=== PATIENT | female | born 2000 | race Caucasian/White ===

== ENCOUNTER 2023-10-11 13:35 | Emergency (ER) | payer BC, SELFPAY ==
[2023-10-11 13:37] VITALS: BP 132/80; PULSE 85; TEMP 37.1; O2SAT 100; BMI 25.6
--- NOTE | 2023-10-11 13:58 | ED.GENADUL1 ---
HPI HPI - General Adult General Chief complaint: Abdominal Pain Stated complaint: CRAMPING/SPOTTING/DIARRHEA Time Seen by Provider: 10/11/23 13:44 Source: patient Mode of arrival: walk-in History of Present Illness HPI narrative: 23-year-old female presents for diarrhea and abdominal cramping. She is about 11 weeks . She had 1 very minimal episode of very light spotting and has had no further vaginal bleeding. No blood in her stool. She talked to her vice president medical affairs and she was sent in here. She has not had a fever and has not had any ill contacts. Related Data Allergies Allergy/AdvReac Type Severity Reaction Status Date / Time No Known Drug Allergies Allergy Verified 10/11/23 13:40 Opioid HPI Opioid Management Most Recent Opioid Data: Last ED Pain Assessment 10/11/23 14:03 Review of Systems ROS Narrative A ten point review of systems is negative except as noted above. Exam Narrative Exam Narrative: Nurses note and vital signs reviewed and patient is not hypoxic. General: The patient appears well and in no apparent distress. Patient is resting comfortably on cart. Skin: Warm, dry, no pallor noted. There is no rash noted. Head: Normocephalic, atraumatic Eye: Normal conjunctiva, no drainage Ears, Nose, Mouth, and Throat: oral mucosa is moist. Nares patent. Cardiovascular: Regular Rate and Rhythm Respiratory: Patient is in no distress, no accessory muscle use, lungs are clear to auscultation, no wheezing, rales or rhonchi Back: non-tender GI: Soft and nontender, nondistended Musculoskeletal: The patient has no evidence of calf tenderness, no pitting edema, symmetrical pulses noted bilaterally Neurological: A&O, normal speech Psychiatric: Cooperative Constitutional Vital Signs, click to edit/add: Last Vital Signs Temp 98.7 F 10/11/23 13:37 Pulse 85 10/11/23 13:37 Resp 16 10/11/23 14:46 BP 106/63 10/11/23 14:46 Pulse Ox 99 10/11/23 14:46 O2 Del Method Room Air 10/11/23 13:37 Course Vital Signs Vital signs: Vital Signs Temperature 98.7 F 10/11/23 13:37 Pulse Rate 85 10/11/23 13:37 Respiratory Rate 16 10/11/23 13:37 Blood Pressure 132/80 10/11/23 13:37 Pulse Oximetry 100 10/11/23 13:37 Oxygen Delivery Method Room Air 10/11/23 13:37 Temperature 98.7 F 10/11/23 13:37 Pulse Rate 85 10/11/23 13:37 Respiratory Rate 16 10/11/23 14:46 Blood Pressure 106/63 10/11/23 14:46 Pulse Oximetry 99 10/11/23 14:46 Oxygen Delivery Method Room Air 10/11/23 13:37 Medical Decision Making MDM Narrative Medical decision making narrative: Ultrasound shows normal IUP and she is able to be discharged home. Treatment diagnosis and follow-up were discussed with the patient and her mother. Differential Diagnosis Differential Diagnosis: Gastroenteritis, miscarriage Lab Data Lab results reviewed: Yes I reviewed the patient's lab results Labs: Lab Results 10/11/23 Range/Units 13:58 WBC 10.7 (4.0-11.0) 10^3/uL RBC 4.20 (4.20-5.40) 10^6/uL Hgb 12.0 (12.0-16.0) g/dL Hct 35.4 L (36.0-48.0) % MCV 84.3 (81.0-99.0) fL MCH 28.6 (26.7-34.0) pg MCHC 33.9 (29.9-35.2) g/dL RDW 11.9 (11.0-15.0) % Plt Count 220 (150-450) 10^3/uL MPV 10.9 (9.5-13.5) fL Neut % (Auto) 78.0 H (43.0-75.0) % Lymph % (Auto) 16.1 L (20.5-60.0) % [place] % (Auto) 5.2 (1.7-12.0) % Eos % (Auto) 0.3 L (0.9-7.0) % Baso % (Auto) 0.2 (0.2-2.0) % Neut # (Auto) 8.3 H (1.4-6.5) 10^3/uL Lymph # (Auto) 1.7 (1.2-3.8) 10^3/uL [place] # (Auto) 0.6 (0.3-0.8) 10^3/uL Eos # (Auto) 0.0 (0.0-0.7) 10^3/uL Baso # (Auto) 0.0 (0.0-0.1) 10^3/uL Abs Immat Gran (auto) 0.02 (0.00-0.03) 10^3/uL Imm/Tot Granulo (auto) 0.2 (0.0-0.5) % Sodium 137 (136-145) mmol/L Potassium 3.5 (3.5-5.1) mmol/L Chloride 102 (98-107) mmol/L Carbon Dioxide 23.9 (21.0-32.0) mmol/L Anion Gap 14.6 BUN 8.0 (7.0-18.0) mg/dL Creatinine 0.52 L (0.55-1.02) mg/dL Est GFR ( Amer) >60 (>=60) Est GFR (Non-Af Amer) >60 (>=60) BUN/Creatinine Ratio 15.4 Glucose 92 (74-106) mg/dL Calcium 8.9 (8.5-10.1) mg/dL Imaging Data Pelvic ultrasound: Radiologist's impression: ITS Impressions Transvaginal US 10/11/23 14:55 IMPRESSION: Viable intrauterine . Right ovarian cyst measuring up to 5.5 cm. Electronically authenticated by: KAROL LYN Date: 10/11/2023 15:52 Discharge Plan Discharge Stand Alone Forms: Portal Instructions Chief Complaint: Abdominal Pain Clinical Impression: Gastroenteritis Patient Disposition: Home, Self-Care Time of Disposition Decision: 15:59 Condition: Good Mode of Transportation: Private Vehicle Print Language: Kenyan Instructions: Acute Diarrhea (ED) Referrals: DAISY BONILLA [Primary Care Provider] - 1 week
[2023-10-11] MEDS: 0.9 % SODIUM CHLORIDE 1,000 ML 1000 ML IV (14:01)
[2023-10-11 14:08] LABS: Basophils Percent Auto 0.2 % (0.2-2.0); Eosinophils Percent Auto 0.3 % (0.9-7.0); Hematocrit 35.4 % (36.0-48.0); Immature Granulocytes Abs Auto 0.02 10^3/uL (0.00-0.03); Immature Granulocytes Pct Auto 0.2 % (0.0-0.5); Lymphocytes Absolute Auto 1.7 10^3/uL (1.2-3.8); Lymphocytes Percent Auto 16.1 % (20.5-60.0); Mean Corpuscular HGB Conc 33.9 g/dL (29.9-35.2); Mean Corpuscular Hemoglobin 28.6 pg (26.7-34.0); Mean Corpuscular Volume 84.3 fL (81.0-99.0); Mean Platelet Volume 10.9 fL (9.5-13.5); Monocytes Absolute Auto 0.6 10^3/uL (0.3-0.8); Monocytes Percent Auto 5.2 % (1.7-12.0); Neutrophils Absolute Auto 8.3 10^3/uL (1.4-6.5); Platelet Count 220 10^3/uL (150-450); Red Cell Distribution Width 11.9 % (11.0-15.0); White Blood Count 10.7 10^3/uL (4.0-11.0)
[2023-10-11 14:13] LABS: Anion Gap 14.6; BUN Creatinine Ratio 15.4; Calcium 8.9 mg/dL (8.5-10.1); Carbon Dioxide 23.9 mmol/L (21.0-32.0); Chloride 102 mmol/L (98-107); Estimated GFR (African America >60 (>=60); Estimated GFR (Non-African Ame >60 (>=60); Glucose 92 mg/dL (74-106); Potassium 3.5 mmol/L (3.5-5.1); Sodium 137 mmol/L (136-145)
[2023-10-11 14:46] VITALS: BP 106/63; O2SAT 99
--- NOTE | 2023-10-11 14:55 | US_ITS ---
The [address] [address] Patient Name: LESLEE REED MRN: [id number] date: 2000 Sex: F Assigned Patient Location: ER Current Patient Location: ER Accession/Order Number: [id number] Exam Date: 10/11/2023 15:10 Report Date: 10/11/2023 15:52 At the request of: HUSAM ARITA Procedure: US OB transvaginal EXAM: US OB transvaginal HISTORY: Vaginal bleeding COMPARISON: None. TECHNIQUE: Transvaginal grayscale and Doppler first trimester ultrasound. FINDINGS: The uterus is normal in appearance. Intrauterine gestational sac and pole are visualized. The heart rate is 163 bpm. Ultrasound gestational age of 12 weeks 0 days. The right ovary measures 6.8 x 5 x 3.5 cm. Unilocular anechoic cyst measuring 5.5 cm. The left ovary measures 3.3 x 2.1 x 2.1 cm. Normal appearance and Doppler flow. The cervix measures 3.7 cm and is closed. US/US OB transvaginal IMPRESSION: Viable intrauterine . Right ovarian cyst measuring up to 5.5 cm. Electronically authenticated by: KAROL LYN Date: 10/11/2023 15:52
[2023-10-11 16:07] VITALS: BP 96/66; PULSE 84; O2SAT 99
== END 2023-10-11 16:08 | disposition home or self-care (01) ==
PROVIDERS: Emergency Provider Emergency Medicine; PCP Nurse Practitioner Family
DX: O99.611 Diseases of the digestive system complicating pregnancy, first trimester (principal); K52.9 Noninfective gastroenteritis and colitis, unspecified; Z3A.11 11 weeks gestation of pregnancy
CPT/HCPCS: 36415; 76817; 80048; 85025; 96360; 99284

== ENCOUNTER 2024-03-04 10:34 | Observation (INO) | payer BC, SELFPAY ==
[2024-03-04 10:53] VITALS: BP 133/80; PULSE 78; TEMP 36.9
[2024-03-04 11:17] LABS: Bilirubin Urine NEGATIVE (NEGATIVE); Blood Urine NEGATIVE (NEGATIVE); Clarity Urine CLEAR (CLEAR); Color Urine LT. YELLOW (YELLOW); Glucose Urine UA NEGATIVE (NEGATIVE); Ketones Urine NEGATIVE (NEGATIVE); Leukocyte Esterase Urine SMALL (NEGATIVE); Nitrite Urine NEGATIVE (NEGATIVE); Protein Urine NEGATIVE (NEG/TRACE); Urobilinogen Urine 0.2 EU/dL (0.2-1.0)
[2024-03-04 11:21] LABS: Urine Microscopic Indicated YES
[2024-03-04 11:24] LABS: Bacteria Urine MODERATE #/HPF (NONE SEEN); Crystals Seen? Seen #/HPF (None Seen); Mucus Urine NONE SEEN (NONE SEEN); RBC Urine NONE SEEN #/HPF (0-2); Squamous Epithelial Cell Urine MODERATE #/LPF (NONE/RARE)
[2024-03-04 11:25] LABS: Amorphous Sediment Urine FEW
[2024-03-04 11:26] LABS: Urine Culture Indicated YES
--- NOTE | 2024-03-04 13:06 | PC.NURSE ---
1040- Pt arrives to [facility] c/o lower abdomen pain on bilateral sides of abdomen. Pt states the pain increases with movement. RN discusses round ligament with pt. Pt states she has had round ligament but states this isn't the same and feels worse. RN palpates abdomen, pt denies pain or tenderness with palpation. Pt denies vaginal bleeding or leaking or fluid. Pt reports white discharge and states she was recently treated for yeast infection. Pt denies cxt's but states she does have travis vigil at times. Pt reports active movement. Pt denies complications other then POTS with this . Pt given belly band for comfort. Urine sample obtained.
--- NOTE | 2024-03-04 13:17 | PC.NURSE ---
1235-d/c home. [facility] discharge instructions given.
== END 2024-03-04 12:35 | disposition home or self-care (01) ==
LOC: FBC 10:36
PROVIDERS: Admitting Provider Obstetrics & Gynecology; PCP Nurse Practitioner Family; Visit Provider Obstetrics & Gynecology
DX: O26.893 Other specified pregnancy related conditions, third trimester (principal); R10.31 Right lower quadrant pain; R10.32 Left lower quadrant pain; N89.8 Other specified noninflammatory disorders of vagina; Z3A.32 32 weeks gestation of pregnancy
CPT/HCPCS: 59025; 81001; 87086; G0378; G0379

== ENCOUNTER 2024-03-23 21:26 | Observation (INO) | payer BC, SELFPAY ==
--- OUTSIDE RECORDS SUMMARY | 2024-03-23 21:34 | XMS_ITS | CCD ---
Author Organization [facility] Care Team Providers Care Overlock Sleeve Setter Name Role Phone Won Joaquim Hill Unavailable Unavailable Ceferino Thurston Unavailable Unavailable Unavailable Primary Care Provider Unavailluther e PROVIDER, UNKNOWN Primary Care Unavailable Sanjay Luevano Unavailable Zaire GARCIA, Soumya Dan Attending Unavail able Manuela GARCIA, Bowen Allan Referring Unavaila heriberto Roy MD, Boewn Allan Attending Unavaila Manfred Argueta Attending Unavailable Manfred Watson Admitting Unavailable NON STAFF Primary Care Unavailable Macario SET UP MECHANIC STAMPING MACHINES-Chanel ROSA Primary Care Provider [phone] SARITA JOY Attending Unavailable CHANEL BONILLA Referring Unavailable CHANEL BONILLA Primary Care Unavailable CHANEL BONILLA Attending Unavailable CHANEL BONILLA Attending Unavailable CHANEL BONILLA Attending Unavailable TOSIN, JORDANA L Attending Unavailable FLORO, JORDANA L Referring Unavailable FLORO, JORDANA L Attending Unavailable FLORO, JORDANA L Attending Unavailable FLORO, JORDANA L Referring Unavailable FLORO, JORDANA L Attending Unavailable FLORO, JORDANA L Attending Unavailable FLORO, JORDANA L Attending Unavailable FLORO, JORDANA L Referring Unavailable FLORO, JORDANA L Attending Unavailable Allergies Allergy Classification Reported Allergen(s) Allergy Type Date of Onset Reaction(s) Facility (1 source) No Known Medication Allergies; Translations: [No Known Medication Allergies] Propensity to adverse reactions to drug (disorder) [facility] Repository Medications Current Medications Medication Drug Class(es) Dates Sig (Normalized) Sig (Original) amoxicillin 875 mg / clavulanate 125 mg oral tablet (1 source) Penicillin-class Antibacterial Start: 01-04-2023 take 1 tablet by mouth every twelve hours Amoxicillin-Pot Clavulanate 875-125 MG 1 tablet Orally every 12 hrs for 10 day(s) Dec, Active lactobacillus acidophilus [id number] unt / pectin 100 mg oral tablet (1 source) acidophilus-pect i n, citrus 25 million cell -100 mg tablet Take by mouth 3 (three) times a day with meals. 0 Active sertraline 50 mg oral tablet (2 sources) Serotonin Reuptake Inhibitor take 1 tablet by mouth in the morning sertraline (ZOLOFT) 50 mg tablet Take 1 tablet (50 mg total) by mouth in the morning. 0 Active take 1 tablet by mouth once arely y Sertraline HCl 50 MG 1 tablet Orally Once a day Active Problems Active Problems Problem Classification Problem Date Documented Da te Episodic/Chronic Conditions associated with dizziness or vertigo (1 source) Dizziness and giddiness; Translations: [Dizziness and giddiness] Onset: 05-07-2023 Episodic Other upper respiratory infections (2 sources) Acute pharyngitis, unspecified; Translations: [Streptococcal pharyngitis] Episodic Past or Other Problems Problem Classification Problem Date Documented Da te Episodic/Chronic Syncope (3 sources) Near syncope; Translations: [Syncope and collapse] Onset: 05-23-2023 08-22-2023 Episodic Results Test Name Value Interpretation Reference Range Facility US OB FOLLOW UP TRANSABDOMIN AL APPROACHon 02-20-2024 OB FOLLOW UP TRANSABDOMINAL APPROACH TITLE OF EXAM: OB Ultrasound: REASON FOR EXAM: Growth TECHNIQUE: Grayscale and color Doppler imaging is performed. Measurements: heart rate: 158 bpm RUBINA: 16.0 cm (8.9-23.6) BPD: 8.0 cm HC: 29.1 cm AC: 28.6 cm FL: 6.2 cm GA for sonogram: 32.2 wk (29.2-35.3) Cervix length: 5.7 cm DRE: 04/27/2024 Weight Estimate: Weight: 1961 gm / 4 lbs, 5 oz (7773-2289 gm) [place] Normal: 1650 gm (0750-1829 gm) [place] Wt%: 99% for 30.5 wks CLINICAL SUMMARY: A single intrauterine is noted in cephalic presentation. heart is observed with a heart rate of 158 BPM. size is large (>90%) for gestational age by weight. growth: Significant (>20%) increase in wt. percentile since previous study. motion and organs seen: body and limb movements are observed. Placenta is located anteriorly. Placenta is Grade 0/III Amniotic fluid volume is normal. IMPRESSION: Single live intrauterine gestation with S>D by nearly 2 weeks. Dictated and transcribed 02/20/24/dpd This report has been electronically signed and approved by the interpreting radiologist. Electronically Signed Lexa Garcia M.D. 2024-02-20 16:24:45 Normal Not Available US OB 14+ WEEKS ANATOMY SCAN on 12-08-2023 US OB 14+ WEEKS ANATOMY SCAN FINDINGS: A single, live intrauterine is present with normal cardiac rate of 139 beats per minute. Normal activity and amniotic fluid volume. Amniotic fluid index is 14 cm. Morphology is grossly normal. The cervix is long and closed, 4.7 cm. The placenta is anterior, not associated with the cervical os. The current sonographic age is 20 weeks and 1 day, based on the following measurements: BPD 4.7 cm (20 weeks, 2 days) Head Circumference 17.6 cm (20 weeks, 1 day) Abdominal Circumference 14.9 cm (20 weeks, 1 day) Femur Length 3.2 cm (20 weeks, 1 day) Presentation Breech Placenta Anterior Grade 0 Weight (g) by Percentile 61.0 % * These measurements result in an estimated date of delivery of April 25, 2024. The current estimated weight is 335 grams (0 pounds, 12 ounces). IMPRESSION: Single, live intrauterine , current sonographic age of 20 weeks and 1 days, with an estimated date of delivery of April 25, 2024. * Estimated Weight (g) by Percentile is based upon an accurate estimated age based on last menstrual period. TRANSCRIBED BY: ELECTRONICALLY SIGNED BY: Augustin Rdz MD Normal Not Available US OB < 14 WEEKS EARLYon US OB < 14 WEEKS EARLY EXAM: US OB < 14 WEEKS EARLY DATE:09/16/2023 4:56 PM CLINICAL HISTORY: Amenorrhea. . COMPARISON: None available for this . Correlation with pelvic ultrasound 03/15/2021. TECHNIQUE: Transvaginal ultrasound was performed of the pelvis. FINDINGS: An approximately 2.9 cm in average dimension gestational sac is present within the central aspect of the uterine body/fundus, without significant surrounding subchorionic hemorrhage. A pole measuring approximately 1.8 cm is present, which corresponds 8 weeks 2 days, +/- 4 days, which is 98.7 percentile for gestation by LMP. The estimated date of delivery by measurements is: 04/26/2024. The estimated date of delivery by LMP is 04/27/2024. cardiac activity measures approximately 168, without visualized arrhythmia. The uterus is otherwise unremarkable in appearance, measuring approximately 8.6 x 6.3 x 4.5 cm, for a volume of 127.5 mL. An approximately 5.1 x 5.0 x 3.6 cm simple cyst within the right ovary appears substantially similar in appearance to 10/13/2020. There is equivalent blood flow to the surrounding ovarian parenchyma. The right ovary measures approximately 5.8 x 5.5 x 3.2 cm, for a volume of approximately 54.4 mL. The left ovary appears within normal limits, measuring approximately 3.3 x 2.6 x 2.4 cm, for a volume of 10.4 mL. There is no significant free fluid, or other findings of concern identified. IMPRESSION: SINGLE LIVE INTRAUTERINE CORRESPONDING TO 8 weeks 2 days, +/- 1 week. Approximately 5 cm simple right ovarian cyst, which appears substantially similar to 03/15/2021. NO FREE FLUID OR OTHER FINDINGS OF CONCERN IDENTIFIED. ELECTRONICALLY SIGNED BY: Shane Mckeon MD Normal Not Available B-Type Natriuretic Peptideon 05-07-2023 Natriuretic peptide B (Bld) [Mass/Vol] 28.0 pg/mL Normal 5-100 [facility] Comment on above: Result Comment: PERF ORMED BY: [place] [address] PATHOLOGIST COMPRESSED GASES TESTER HALEY PIERRE M.D. Performed By: #### D DIMER, PT, CMP, CK, BNP, HS TROP, CBC, MG, PTT #### [address] Complete Blood Count Auto Di ffon 05-07-2023 Basophils (Bld) [#/Vol] 0.1 10*3/uL Normal 0.0-0.2 [facility] Comment on above: Result Comment: PERF ORMED BY: [address] [place] [address] PATHOLOGIST COMPRESSED GASES TESTER HALEY PIERRE M.D. Performed By: #### D DIMER, PT, CMP, CK, BNP, HS TROP, CBC, MG, PTT #### [address] Basophils/100 WBC (Bld) 0.5 % Normal . [facility] Comment on above: Performed By: #### D DIMER, PT, CMP, CK, BNP, HS TROP, CBC, MG, PTT #### [address] Eosinophils (Bld) [#/Vol] 0.0 10*3/uL Normal 0.0-0.45 [facility] Comment on above: Performed By: #### D DIMER, PT, CMP, CK, BNP, HS TROP, CBC, MG, PTT #### [address] Eosinophils/100 WBC (Bld) 0.2 % Normal . [facility] Comment on above: Performed By: #### D DIMER, PT, CMP, CK, BNP, HS TROP, CBC, MG, PTT #### [address] Erythrocyte distribution width (RBC) [Ratio] 13.5 % Normal 11.9-15.3 [facility] Comment on above: Performed By: #### D DIMER, PT, CMP, CK, BNP, HS TROP, CBC, MG, PTT #### [address] Hematocrit (Bld) [Volume fraction] 43.7 % Normal 34.0-46.4 [facility] Comment on above: Performed By: #### D DIMER, PT, CMP, CK, BNP, HS TROP, CBC, MG, PTT #### [address] Hemoglobin (Bld) [Mass/Vol] 14.8 g/dL Normal 11.8-15.4 [facility] Comment on above: Performed By: #### D DIMER, PT, CMP, CK, BNP, HS TROP, CBC, MG, PTT #### [address] Lymphocytes (Bld) [#/Vol] 2.0 10*3/uL Normal 1.00-4.8 [facility] Comment on above: Performed By: #### D DIMER, PT, CMP, CK, BNP, HS TROP, CBC, MG, PTT #### [address] Lymphocytes/100 WBC (Bld) 20.0 % Normal . [facility] Comment on above: Performed By: #### D DIMER, PT, CMP, CK, BNP, HS TROP, CBC, MG, PTT #### [address] MCH (RBC) [Entitic mass] 28.2 pg Normal 24.7-34.3 [facility] Comment on above: Performed By: #### D DIMER, PT, CMP, CK, BNP, HS TROP, CBC, MG, PTT #### [address] MCV (RBC) [Entitic vol] 83.2 fL Normal 80-100 [facility] Comment on above: Performed By: #### D DIMER, PT, CMP, CK, BNP, HS TROP, CBC, MG, PTT #### [address] Mean Corpuscular HGB Conc 34.0 g/dL Normal 32.0-35.0 [facility] Comment on above: Performed By: #### D DIMER, PT, CMP, CK, BNP, HS TROP, CBC, MG, PTT #### [address] Monocytes (Bld) [#/Vol] 0.5 10*3/uL Normal 0.0-0.8 [facility] Comment on above: Performed By: #### D DIMER, PT, CMP, CK, BNP, HS TROP, CBC, MG, PTT #### [address] Monocytes/100 WBC (Bld) 19.49 % Normal 0.00-20.00 [facility] Comment on above: Performed By: #### D DIMER, PT, CMP, CK, BNP, HS TROP, CBC, MG, PTT #### [address] Monocytes/100 WBC (Bld) 4.7 % Normal . [facility] Comment on above: Performed By: #### D DIMER, PT, CMP, CK, BNP, HS TROP, CBC, MG, PTT #### [address] Neutrophils (Bld) [#/Vol] 7.5 10*3/uL Normal 1.8-7.7 [facility] Comment on above: Performed By: #### D DIMER, PT, CMP, CK, BNP, HS TROP, CBC, MG, PTT #### [address] Neutrophils/100 WBC (Bld) 74.6 % Normal . [facility] Comment on above: Performed By: #### D DIMER, PT, CMP, CK, BNP, HS TROP, CBC, MG, PTT #### [address] NRBC% 0.0 /100{WBC} Normal 0-0.5 [facility] Comment on above: Performed By: #### D DIMER, PT, CMP, CK, BNP, HS TROP, CBC, MG, PTT #### [address] Platelet mean volume (Bld) [Entitic vol] 9.2 fL Normal 6.3-10.7 [facility] Comment on above: Performed By: #### D DIMER, PT, CMP, CK, BNP, HS TROP, CBC, MG, PTT #### [address] Platelets (Bld) [#/Vol] 246 10*3/uL Normal 150-450 [facility] Comment on above: Performed By: #### D DIMER, PT, CMP, CK, BNP, HS TROP, CBC, MG, PTT #### [facility] [address] RBC (Bld) [#/Vol] 5.25 10*6/uL High 3.60-5.00 [facility] Comment on above: Performed By: #### D DIMER, PT, CMP, CK, BNP, HS TROP, CBC, MG, PTT #### [address] WBC (Bld) [#/Vol] 10.1 10*3/uL Normal 3.8-11.6 [facility] Comment on above: Performed By: #### D DIMER, PT, CMP, CK, BNP, HS TROP, CBC, MG, PTT #### [address] Comprehensive Metabolic Pane dian 05-07-2023 Albumin [Mass/Vol] 4.7 g/dL Normal 3.5-5.7 [facility] Comment on above: Performed By: #### D DIMER, PT, CMP, CK, BNP, HS TROP, CBC, MG, PTT #### [address] Albumin/Globulin [Mass ratio] 1.4 {ratio} Normal [facility] Comment on above: Performed By: #### D DIMER, PT, CMP, CK, BNP, HS TROP, CBC, MG, PTT #### [address] ALP [Catalytic activity/Vol] 77 U/L Normal 34-104 [facility] Comment on above: Performed By: #### D DIMER, PT, CMP, CK, BNP, HS TROP, CBC, MG, PTT #### [address] ALT [Catalytic activity/Vol] 15 U/L Normal 7-52 [facility] Comment on above: Performed By: #### D DIMER, PT, CMP, CK, BNP, HS TROP, CBC, MG, PTT #### [address] Anion gap [Moles/Vol] 11.3 mmol/L Normal 6.0-15.0 [facility] Comment on above: Performed By: #### D DIMER, PT, CMP, CK, BNP, HS TROP, CBC, MG, PTT #### [address] AST [Catalytic activity/Vol] 16 U/L Normal 13-39 [facility] Comment on above: Performed By: #### D DIMER, PT, CMP, CK, BNP, HS TROP, CBC, MG, PTT #### [address] Bilirubin [Mass/Vol] 0.5 mg/dL Normal 0.3-1.0 [facility] Comment on above: Performed By: #### D DIMER, PT, CMP, CK, BNP, HS TROP, CBC, MG, PTT #### [address] Calcium [Mass/Vol] 9.8 mg/dL Normal 8.6-10.3 [facility] Comment on above: Performed By: #### D DIMER, PT, CMP, CK, BNP, HS TROP, CBC, MG, PTT #### [address] Chloride [Moles/Vol] 102 mmol/L Normal 98-107 [facility] Comment on above: Performed By: #### D DIMER, PT, CMP, CK, BNP, HS TROP, CBC, MG, PTT #### [address] CO2 [Moles/Vol] 26.5 mmol/L Normal 21.0-31.0 [facility] Comment on above: Performed By: #### D DIMER, PT, CMP, CK, BNP, HS TROP, CBC, MG, PTT #### [address] Creatinine [Mass/Vol] 0.57 mg/dL Low 0.60-1.20 [facility] Comment on above: Performed By: #### D DIMER, PT, CMP, CK, BNP, HS TROP, CBC, MG, PTT #### [facility] [address] Creatinine Clr Calc Pharmacy 152.63 [facility] Comment on above: Performed By: #### D DIMER, PT, CMP, CK, BNP, HS TROP, CBC, MG, PTT #### [address] GFR/1.73 sq M.predicted MDRD (S/P/Bld) [Vol rate/Area] mL/min/{1.73_m2} [facility] Comment on above: Performed By: #### D DIMER, PT, CMP, CK, BNP, HS TROP, CBC, MG, PTT #### [address] Globulin (S) [Mass/Vol] 3.3 g/dL [facility] Comment on above: Performed By: #### D DIMER, PT, CMP, CK, BNP, HS TROP, CBC, MG, PTT #### [address] Glucose [Mass/Vol] 94 mg/dL Normal 70-100 [facility] Comment on above: Result Comment: [facility] Glucose Reference Range is dependent on time and content of last meal. Glucose of more than 200 mg/dL in a nonstressed, ambulatory subject supports the diagnosis of Diabetes Mellitus. ADA recommended reference range Performed By: #### D DIMER, PT, CMP, CK, BNP, HS TROP, CBC, MG, PTT #### [address] Potassium [Moles/Vol] 3.8 mmol/L Normal 3.5-5.1 [facility] Comment on above: Performed By: #### D DIMER, PT, CMP, CK, BNP, HS TROP, CBC, MG, PTT #### [address] Protein [Mass/Vol] 8.0 g/dL Normal 6.4-8.9 [facility] Comment on above: Performed By: #### D DIMER, PT, CMP, CK, BNP, HS TROP, CBC, MG, PTT #### [address] Sodium [Moles/Vol] 136 mmol/L Normal 136-145 [facility] Comment on above: Performed By: #### D DIMER, PT, CMP, CK, BNP, HS TROP, CBC, MG, PTT #### [address] Urea nitrogen [Mass/Vol] 9 mg/dL Normal 7-25 [facility] Comment on above: Performed By: #### D DIMER, PT, CMP, CK, BNP, HS TROP, CBC, MG, PTT #### [address] Creatine Kinaseon 05-07-2023 CK [Catalytic activity/Vol] 70 U/L Normal 30-223 [facility] Comment on above: Performed By: #### D DIMER, PT, CMP, CK, BNP, HS TROP, CBC, MG, PTT #### [address] D-Dimer High Sensitivityon 1 07-07-2022 D-Dimer High Sensitivity < 200 Normal 0-243 [facility] Comment on above: Result Comment: The reference range for D-dimer is <243 ng/mL D-dimer units. D-dimer results must be used in conjunction with a clinical pretest probability (PTP) assessment model for deep vein thrombosis (DVT) and pulmonary embolism (PE). Results <230 ng/mL d-dimer units can be used as a negative predictor in patients with low or moderate probability for DVT/PE. Results above the exclusion threshold of 230 ng/ml D-dimer units for DVT/PE may indicate the need for further diagnostic testing. D-Dimer can be increased in hospitalized patients due to co-morbid conditions. A hematocrit value greater than 55% may lead to inaccurate results in coagulation testing. Patients having hematocrit values >55% require a special collection tube for coagulation studies. Please contact the laboratory at [phone] for redraw instructions. PERFORMED BY: [place] [address] PATHOLOGIST COMPRESSED GASES TESTER HALEY PIERRE M.D. Performed By: #### G LULS #### Point of Care testing , ECG 12 lead ECGon 05-07-2023 ECG 12 lead ECG [facility] [place] [address] [place] [id number] Electrocardiograph Report Signed Patient: Melissa Navarro MR#: [id number] : 2000 Acct:[id number] Age/Sex: 23 / F ADM Date: 05/07/23 Loc: ER Room: Type: [facility] ER Attending Dr: Ordering Provider: Manfred Watson DO Date of Service: 05/07/23 ECG/ECG 12 lead ECG: Syncope Copies to: Test Reason : Blood Pressure : 133/079 mmHG Vent. Rate : 083 BPM Atrial Rate : 083 BPM P-R Int : 136 ms QRS Dur : 064 ms QT Int : 364 ms P-R-T Axes : 053 071 041 degrees QTc Int : 427 ms Normal sinus rhythm Confirmed by Manfred WATSON DO ([id number]) on 05/07/2023 4:15:35 PM Referred By: Electronically Signed By:Manfred WATSON DO Transcribed By: MUS Signed By Manfred Watson DO 1 07/07/22 1615 Normal [facility] Glucose Poct Glucometerson 1 07-07-2022 Glucose [Mass/Vol] 86 mg/dL Normal [facility] Comment on above: Result Comment: [facility] Glucose Reference Range is dependent on time and content of last meal. Glucose of more than 200 mg/dL in a nonstressed, ambulatory subject supports the diagnosis of Diabetes Mellitus. PERFORMED BY: [address] [id number] PATHOLOGIST COMPRESSED GASES TESTER HALEY PIERRE M.D. Performed By: #### G LULS #### Point of Care testing , HCG,Urineon 05-07-2023 Beta HCG ( test) Ql (U) Negative Normal [facility] Comment on above: Result Comment: PERF ORMED BY: [address] [id number] PATHOLOGIST COMPRESSED GASES TESTER HALEY PIERRE M.D. Performed By: #### G LULS #### Point of Care testing , Magnesiumon 05-07-2023 Magnesium [Mass/Vol] 2.0 mg/dL Normal 1.9-2.7 [facility] Comment on above: Result Comment: PERF ORMED BY: [place] [id number] PATHOLOGIST COMPRESSED GASES TESTER HALEY PIERRE M.D. Performed By: #### D DIMER, PT, CMP, CK, BNP, HS TROP, CBC, MG, PTT #### [facility] [address] [place] [id number] [place] Partial Thromboplastin Timeo n 05-07-2023 aPTT Coag (Bld) [Time] 30.5 s Normal 25.1-36.5 [facility] Comment on above: Result Comment: A he matocrit value greater than 55% may lead to inaccurate results in coagulation testing. Patients having hematocrit values >55% require a special collection tube for coagulation studies. Please contact the laboratory at [phone] for redraw instructions. Performed By: #### G LULS #### Point of Care testing , Prothrombin Time INRon 05-07 INR Coag (PPP) [Relative time] 1.0 {INR} Normal [facility] Comment on above: Result Comment: INR Therapeutic Range A) Pre- and Peroperative OAT started two weeks before surgery. NOT HIP SURGERY: 1.5 - 2.5 HIP SURGERY: 2 - 3 B) Primary and secondary prevention of venous THROMBOSIS: 2 - 3 C) Active venous thrombosis, pulmonary embolism and prevention of recurrent venous thrombosis: 2 - 3 D) Prevention of arterial thromboembolism including patients with mechanical heart valves: 3 - 4.5 Performed By: #### G LULS #### Point of Care testing , PT Coag (PPP) [Time] 12.1 s Normal 9.0-12.9 [facility] Comment on above: Result Comment: A he matocrit value greater than 55% may lead to inaccurate results in coagulation testing. Patients having hematocrit values >55% require a special collection tube for coagulation studies. Please contact the laboratory at [phone] for redraw instructions. Performed By: #### G LULS #### Point of Care testing , Troponin I High Sensitivityo n 05-07-2023 Troponin I High Sensitivity < 2.3 Normal 0.0-15.0 [facility] Comment on above: Result Comment: PERF ORMED BY: [place] [address] PATHOLOGIST COMPRESSED GASES TESTER HALEY PIERRE M.D. Performed By: #### D DIMER, PT, CMP, CK, BNP, HS TROP, CBC, MG, PTT #### [facility] [address] [place] [address] Urinalysison 05-07-2023 Appearance (U) Clear Normal Clear [facility] Comment on above: Order Comment: Name Collection Type:: Clean-Voided Midstream Performed By: #### U A #### [address] Bilirubin,Urine Negative Normal Negative [facility] Comment on above: Order Comment: Name Collection Type:: Clean-Voided Midstream Performed By: #### U A #### [address] Color (U) Yellow Normal Yellow [facility] Comment on above: Order Comment: Name Collection Type:: Clean-Voided Midstream Performed By: #### U A #### [address] Glucose Ql (U) Normal Normal Normal [facility] Comment on above: Order Comment: Name Collection Type:: Clean-Voided Midstream Performed By: #### U A #### [address] Ketones Ql (U) Negative Normal Negative [facility] Comment on above: Order Comment: Name Collection Type:: Clean-Voided Midstream Performed By: #### U A #### [address] Leukocyte esterase Test strip Ql (U) Negative Normal Negative [facility] Comment on above: Order Comment: Name Collection Type:: Clean-Voided Midstream Performed By: #### U A #### [facility] [address] [place] [address] [place] Nitrite,Urine Negative Normal Negative [facility] Comment on above: Order Comment: Name Collection Type:: Clean-Voided Midstream Performed By: #### U A #### [address] Occult Blood,Urine Negative Normal Negative [facility] Comment on above: Order Comment: Name Collection Type:: Clean-Voided Midstream Result Comment: PERF ORMED BY: [place] [address] PATHOLOGIST COMPRESSED GASES TESTER HALEY PIERRE M.D. Performed By: #### U A #### [address] pH (U) 7.0 [pH] Normal 5.0-9.0 [facility] Comment on above: Order Comment: Name Collection Type:: Clean-Voided Midstream Performed By: #### U A #### [address] Protein,Urine Negative Normal Negative [facility] Comment on above: Order Comment: Name Collection Type:: Clean-Voided Midstream Performed By: #### U A #### [address] Specificy [place],Urine 1.005 Normal 1.001-1.030 [facility] Comment on above: Order Comment: Name Collection Type:: Clean-Voided Midstream Performed By: #### U A #### [address] Urobilinogen,Urine Normal Normal Normal [facility] Comment on above: Order Comment: Name Collection Type:: Clean-Voided Midstream Performed By: #### U A #### [place] [address] [place] XR chest 2V*on 05-07-2023 XR chest 2V* [facility] [place] [address] [place] [address] XRay Report Signed Patient: Melissa Navarro MR#: [id number] : 2000 Acct:[id number] Age/Sex: 23 / F ADM Date: 05/07/23 Loc: ER Room: Type: [facility] ER Attending Dr: Copies to: Manfred Watson DO Ordering Provider: Manfred Watson DO Date of Service: 05/07/23 XR/XR chest 2V*: Syncope XR chest 2V* 05/07/2023 2:11 PM SIGNS AND SYMPTOMS: Dizziness, lightheadedness, nausea, hypertension PROTOCOL: Frontal and lateral radiographs of the chest COMPARISON: None FINDINGS: The trachea is midline. The heart and mediastinal structures are within normal limits. The lung parenchyma is clear. The bony thorax is intact. XR/XR chest 2V* IMPRESSION: No acute cardiopulmonary pathology. 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 The symptoms resolved after about a week or 2. She states she has about 1 occasionally 2 infections a year of her tonsils. She also has a history of occasional sinus infection. There is been no significant allergy symptomatology though she does complain of persisting low-grade congestion which may have an allergic component. Review of Systems General Appetite change: No Cardiovascular EENMT Ear drainage: No Ear pain: No Hearing loss: No Hoarseness: Yes Nasal congestion: Yes Nasal discharge: Yes Sore_throat: No Tinnitus: No Gastrointestinal Dysphagia: No Heartburn: No Genitourinary Hematologic/Lymphatic Musculoskeletal Neurological Headache: No Psychiatric Suicidal Ideation: No Respiratory Cough: No Snoring: Yes Skin Physical Exam Vitals & Measurements T: 36.6 ?C (Temporal Artery) HR: 55 (Peripheral) BP: 136/78 HT: 163.5 cm WT: 79.0 kg WT: 79.0 kg (Dosing) BMI: 29.55 General: [Alert and oriented, well nourished, no acute distress]. Eye: [PERRL, EOMI, normal conjunctiva]. HENT: [Normocephalic Ears: Both ear canals are clear tympanic membranes are healthy. Of note there is a moderate amount of cerumen and she admits to using Q-tips which have urged her to stop doing. Nose: The nose is healthy without deformity. The septum is essentially midline with no significant deformity. The airways are patent without stasis or purulence. OC/OP: Moist healthy mucosa with excellent dental repair. Normal lingual coat. Oropharynx reveals 2+ tonsils with a nice open airway. There is no postnasal drainage. Neck: [Supple, non-tender, no lymphadenopathy]. Lungs: [Clear to auscultation and percussion, non-labored respiration]. Heart: [Normal rate, regular rhythm, no murmur, gallop or edema]. Skin: [Skin is warm, dry and pink, no rashes or lesions]. Neurologic: [Awake, alert, and oriented X3, CN II-XII intact]. Psychiatric: [Cooperative, appropriate mood and affect]. Additional Vitals BP Position/Location: Sitting, Left arm Assessment/Plan 1. Acute streptococcal tonsillitis 2. Allergic rhinitis Recommendation: At this time the patient's symptoms do not warrant surgical intervention. 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 She wishes to have an allergic evaluation which we will schedule. I will otherwise be seeing her as needed Medical Decision Making Chronic conditions NOT treated during this visit that affected my overall medical decision making: [] Treatment plans discussed but not opted for at this time: [] Prescribed medication that requires intensive monitoring for toxicity: [] I have reviewed the patient?s medication list for medication interactions/contrain dications and/or for upcoming procedures: [yes or no] Time Spent with the Patient I have personally spent [] minutes on this date, directly related to today's patient visit, including pre and post visit work, for this date of service. Time listed does not include time spent on separately billable services. Problem List/Past Medical History Ongoing No chronic problems Historical No qualifying data Procedure/Surgical History Entire wisdom tooth Medications No active medications Allergies No Known Medication Allergies Social History Tobacco Never (less than 100 in lifetime) Use:. Electronically signed by Bowen Roy MD 03/17/23 09:22 EDT Normal [facility] Quick Strepon 01-04-2023 S. pyogenes Org specific cx Ql (Throat) Positive [facility] Other Quick Strep [facility] Other PAPon 12-07-2021 Microscopic observation Cyto stain Nom (Cvx) SEE BELOW Normal [facility] Comment on above: Result Comment: INTERPRETATION Cervical-Endocervical material, (Thin prep vial, Imaging-assisted review): Specimen Adequacy: Satisfactory for evaluation. -Endocervical/transformation zone component is absent. Descriptive Diagnosis: NEGATIVE FOR INTRAEPITHELIAL LESION OR MALIGNANCY. Cider Maker: VALERY GONZALEZ(ASCP) Electronically Signed Out /12/07/2021 Clinical History: Depo Provera Z12.4 Encounter for screening for malignant neoplasm of cervix High risk HPV DNA testing is requested if the diagnosis is abnormal Source of Specimen: A: Cervical-Endocervical material, (Thin prep vial, Imaging-assisted review) Specimen was processed and screened at [facility], [address] [place], [place] [id number] The Pap smear is a screening test designed to aid in the detection of premalignant and malignant conditions of the uterine cervix. It is not a diagnostic procedure and should not be used as the sole means of detecting cervical cancer. Both false-positive and false-negative reports do occur. Patient Name: MELISSA NAVARRO MR#: [id number] Performed By: #### I PAP #### [employer] [address] [place] [id number] ER Physician Documentationon 04-08-2017 ER Physician Documentation [facility] Patient: MELISSA NAVARRO [address]. : 2000 [place], [place] [address] Location: ER [phone] [id number] Physician Documentation Service Date:04/04/17 ER Provider: Joaquim Upton MD - Chest Pain Time Seen by Provider: 04/04/17 14:23 Arrival Mode: Private Vehicle Historian: Patient - History of Present Illness Stated Complaint: SENT BY DR/ CHEST PAIN Symptoms Began: Today Symptoms Still Occurring: Still Present Quality: Pain Location: Left Chest Associated Symptoms: denies: Nausea, Vomiting, Trouble Breathing, Sweating, Other Severity of Pain: Mild Similar Problems Previously: Once Recently Seen: Another Office 17 y/o F Pt Presents to the ED c/o CP. Pt states she has been having L side CP for 4 days. Pt states she was at her PCP today and got a EKG done and they told her to come to ED, to check for any blood clots. Pt denies taking control, denies long trips and hx of blood clots. Pt denies any surgeries. Pt states her legs have been hurting, slightly, and were swollen, bilaterally, once in the last 4 days. Pt denies family cardiac Hx. Pt's father states Pt has had this once before and it was heartburn. Pt states she does not feel like this is heartburn. Pt denies N/V/D. Pt states last menstrual cycle was last month on the . Past Medical History Allergies/Adverse Reactions: Allergies/Adverse Reactions No Known Drug Allergy Allergy (Verified 04/04/17 14:25) Home Medications: Home Medications Naproxen [Naprosyn] 500 mg PO BID #20 tab 04/04/17 [Rx] - Social History Exposed to second hand smoke/ parent smoke: No Caffeine Amount: <1/Day Alcohol Amount: None Street Drugs: None Review and agree with Nursing - Past Medical History: Agree Review and agree with Nursing - Social History: Agree Review and agree with Nursing - Family History: Agree Review of Systems Constitutional: No symptoms, Night sweats Respiratory: No symptoms Cardiac: Chest pain Abdomen/GI: No symptoms. denies: Nausea, Vomiting Genitourinary: No symptoms Skin: No symptoms Musculoskeletal: No symptoms Neurological: No symptoms. denies: Headache Endocrine: No symptoms Hematologic/Lymphatic : No symptoms Psychiatric: No symptoms All other systems: Reviewed and negative except HPI Exam - Physical Exam Patient presentation: Well appearing, No apparent distress General Skin: Warm, Dry General Habitus: Normal General Mental Status: Alert General hydration: Moist mucous membranes Cardiovascular Exam: Regular rate and rhythm, No edema Heart sounds: Normal Pulmonary exam: Lungs clear, No respiratory distress, Other - L side chest pain Gastrointestinal Exam: Normal bowel sounds, non tender, Soft, No organomegaly, Non distended Auscultation of Abdomen: Normal - Musculoskeletal Exam Musculoskeletal Exam: Full ROM, No edema, Neurovascular intact - Skin Exam Intact, Warm,dry, No rash - Neurovascular Exam Neurological Exam: Alert, Oriented x 3, No motor deficits, No sensory deficits Mental Status: Oriented to person, Oriented to place, Oriented to time Sensory Exam: Intact Course - Progress note 04/04/17 14:23 Basilio Martin PA-C, examined Pt c/o CP. Upon exam Pt has no leg swelling bilaterally, no leg pain, has had no recent surgeries and no long trips. Pt states hx of heartburn with some similar sx. Upon exam Pt has L side CP. Pt will receive LABs and X-ray. Pt will receive Toradol. Pt understands and agrees to POC. 04/04/17 15:48 Basilio Martin PA-C, updated Pt and Pt's father on normal results and on remote care. Pt is resting comfortably. Pt will be discharged with Naproxen and will follow-up with her PCP. Pt and Pt's father understand and agree to POC. - Orders/Results Orders Electrocardiogram 12 Lead Stat CTC 04/04/17 14:31 Completed Laboratory 04/04/17 15:03: D-Dimer 192 Radiology Interpretations: CR XR Chest 1 View Portable Nonacute portable x-ray examination of the chest. Electronically Signed: Juarez Muhammad MD at 15:40 EDT Radiology: Agree with Radiology report findings, Radiology report reviewed - Pulse Oximetry Oxygen delivery method: Room Air Patient Hypoxic: No - EKG Interpretation EKG #1 EKG review date: 04/04/17 EKG review time: 14:24 - EKG reviewed by Dr. Joaquim Upton MD Computerized reading: Agree with computerized reading Interpretation: Normal EKG Comparison: No comparison available Heart rate: 70 Rate: Normal Rhythm: Sinus - Vital Signs Vital Signs 04/04/17 16:01 16 04/04/17 15:47 70 16 117/75 97 04/04/17 14:18 100.3 F 79 16 126/73 98 - *HEART Score HEART Score Completed?: Yes History: Slightly/Non-Suspicio us ECG: Normal Age: < or = 45 years Risk Factors: Current/Recent (<1month) Smoker,DM,HTN,HLP,Fam myron Hx of CAD, Obesity: No Risk Factors Troponin: < or = Normal Limit HEART SCORE: 0 MACE: 2.5% MACE Departure Disposition*: Discharge from ER Condition*: Excellent Clinical Impression*: Costochondritis Instructions: Costochondritis (ED) Additional Instructions: Take Naproxen as prescribed. Follow up with primary care provider in 1-2 days. Return to the Emergency Department if symptoms worsen. Referrals: Ceferino Thurston MD [Primary Care Provider] - in one week Forms: ED Additional Information Prescriptions: Naproxen [Naprosyn] 500 mg PO BID #20 tab - Shared Attending Note 04/04/17 14:54 Dr. Joaquim Upton MD performed a face to face evaluation of the pt c/o CP. Upon examination pt has reproducible anterior chest wall tenderness. Dr. Upton agrees with MART Martin' POC. All questions and concerns were addressed. Pt understands and agrees with POC. - Supervision/Review Statement Evaluation and management services were performed by the DATA REPORT ANALYST/FRANK/Resident under my supervision/collabora tion with my participation. I have reviewed all pertinent clinical information, including history, physical exam and plan. Dr. Joaquim Upton MD. - Scribe Attestation By electronically signing this emergency patient record, the Emergency Physician attests that all entries made into the electronic medical record by the scribe prior to the Physician electronic signature reflect an accurate accounting of the evaluation and care rendered by that Emergency Physician. The Emergency Physician assumes full responsibility for those entries. The Emergency Physician also attests that any patient testing and treatment that was instituted by nursing staff in accordance with Emergency Department Preemptive Guidelines have been reviewed and unless so stated elsewhere in this patient chart, the physician agrees with the testing and care provided. IJaun, documented the HPI, ROS, PE, Progress Note, X-ray and Heart Score for Basilio Martin PA-C. By electronically signing this emergency patient record, the Emergency Physician attests that all entries made into the electronic medical record by the scribe prior to the Physician electronic signature reflect an accurate accounting of the evaluation and care rendered by that Emergency Physician. The Emergency Physician assumes full responsibility for those entries. The Emergency Physician also attests that any patient testing and treatment that was instituted by nursing staff in accordance with Emergency Department Preemptive Guidelines have been reviewed and unless so stated elsewhere in this patient chart, the physician agrees with the testing and care provided. IBabak, documented the Shared Attending Note and EKG on behalf of Dr. Joaquim Upton MD. cc: Ceferino Thurston MD Dictated by: Jaun Barber on 04/04/171424 Transcribed by: Jaun Quinteros on 04/04/171424 Report Signed by: Basilio Martin PA-C on 04/08/17 1551 < > Report Signed by: Joaquim Upton MD on 04/04/17 1950 < > Report Signed by: on Report Signed by: on Co-Signer: Basilio Martin PA-C on 04/08/17 1551 < > Normal [facility] EKG Monitoringon 04-05-2017 EKG Monitoring [facility] Patient: MELISSA NAVARRO. : 2000 [place], [place] [address] Location: [place] [address] Unit #: [id number] EKG Monitoring Lenny Mendoza DO Exam Date/Time Apr 04 2017 14:24:15 Test Reason : Blood Pressure : / mmHG Vent. Rate : 070 BPM Atrial Rate : 070 BPM P-R Int : 124 ms QRS Dur : 076 ms QT Int : 392 ms P-R-T Axes : 033 079 044 degrees QTc Int : 423 ms Normal sinus rhythm Normal ECG No previous ECGs available Confirmed by LENNY MENDOZA DO ([id number]) on 04/05/2017 3:33:19 PM Referred By: Basilio Martin Confirmed By:LENNY MENDOZA DO cc: Dictated by: Lenny Mendoza DO on 04/04/17 142 Transcribed by: [employer] M-AT on 04/05/17 1533 Report Signed by: Lenny Maynardaylinautumn on 04/05/17 1534 Normal [facility] D-Dimeron 04-04-2017 D-Dimer (D-DU) 192 ng/mL Normal <230 [facility] Comment on above: Result Comment: When D-Dimer level is less than 230 ng/mL, probability of DVT and PE is low (based on the studies done by the inorganic chemistry professor and [facility] lab). If D-Dimer level is greater than 230 ng/mL, correlation with clinical findings and/or other modalities is suggested to exclude thromboembolic events. (These guidelines do not apply to patients on anticoagulants). Performed By: #### L 200.1210 ####Main Laboratory ([facility])[address].[place] [id number] Nivar, MD XR Chest 1 View Portableon 1 XR Chest 1 View Portable [facility] Radiology Department Patient: MELISSA NAVARRO [address]. : 2000 Sex: [place] [address] Location: [address] [phone] Unit #: [id number] Ordering Phys: Basilio Martin PA-C Exam Date: 04/04/17 Exam: MAIN XR Chest 1 View Portable Result: STUDY: X-RAY CHEST REASON FOR EXAM: Female, 17 years old. Left-sided chest pain for 4 days TECHNIQUE: AP COMPARISON: None. FINDINGS: EKG leads project over the chest. The lungs are clear and expanded. There is no demonstrated pleural abnormality. Normal size heart. Normal mediastinum and arnold. Normal visualized pulmonary arteries. Normal visualized aortic arch and descending thoracic aorta. Normal visualized thoracic spine. Normal visualized ribs, clavicles, and shoulders. There is no demonstrated abnormality of the visualized soft tissue structures of the upper abdomen. IMPRESSION: Nonacute portable x-ray examination of the chest. Electronically Signed: Juarez Muhammad MD at 15:40 EDT , Service support , cc: Basilio Martin PA-C; Ceferino Thurston MD Dictated by: Misti Muhammad MD on 04/04/17 1518 Technologist: Flory Grimm RT(R) Transcribed by: Misti Muhammad on 04/04/17 1540 Report Signed by: Jb GARCAI,Misti Caro on 04/04/17 1540 Normal [facility] Vital Signs Date Time Vital Sign Value Performing Clinician Facility 08-22-2023 12:15-0500 Body height 162.6 cm Sarita Joy MD Work Phone: [facility] 08-22-2023 12:15-0500 Body mass index (BMI) [Ratio] 32.08 kg/m2 Sarita Joy MD Work Phone: [facility] 08-22-2023 12:15-0500 Body weight 84.82 kg Sarita Joy MD Work Phone: [facility] 08-22-2023 12:15-0500 Diastolic blood pressure 88 mm[Hg] Sarita Joy MD Work Phone: [facility] 08-22-2023 12:15-0500 Heart rate 92 /min Sarita Joy MD Work Phone: [facility] 08-22-2023 12:15-0500 SaO2% (BldA) [Mass fraction] 99 % Sarita Joy MD Work Phone: [facility] 08-22-2023 12:15-0500 Systolic blood pressure 122 mm[Hg] Sarita Joy MD Work Phone: [facility] 01-04-2023 10:00-0400 Body height 162.56 cm Sanjay Luevano Other [facility] Other 01-04-2023 10:00-0400 Body mass index (BMI) [Ratio] 29.86 kg/m2 Sanjay Luevano Other [facility] Other 01-04-2023 10:00-0400 Body temperature 98 [degF] Sanjay Luevano Other [facility] Other 01-04-2023 10:00-0400 Body weight 78.93 kg Sanjay Luevano Other [facility] Other 01-04-2023 10:00-0400 Respiratory rate 18 /min Sanjay Luevano Other [facility] Other 01-04-2023 10:00-0400 SaO2% (BldA) [Mass fraction] 98 % Sanjay Luevano Other [facility] Other Encounters Encounter Date Encounter Type Care Provider Facility Start: 02-25-2024 End: 02-25-2024 ambulatory JORDANA L FLORO Not Available Start: 02-20-2024 End: 02-20-2024 ambulatory JORDANA L FLORO Not Available Start: 01-29-2024 End: 01-29-2024 ambulatory JORDANA L FLORO Not Available Start: 12-31-2023 End: 12-31-2023 ambulatory JORDANA L FLORO Not Available Start: 12-08-2023 End: 12-08-2023 ambulatory JORDANA L FLORO Not Available Start: 11-10-2023 End: 11-10-2023 ambulatory JORDANA L FLORO Not Available Start: 10-13-2023 End: 10-13-2023 ambulatory JORDANA L FLORO Not Available Start: 09-16-2023 End: 09-16-2023 ambulatory JORDANA L FLORO Not Available Start: 08-22-2023 End: 08-22-2023 ambulatory [facility] Start: 08-22-2023 End: 08-22-2023 Office outpatient visit 15 minutes Sarita Joy MD Work Phone: [facility] Comment on above: Near syncope (Primar y Dx) Start: 08-19-2023 End: 08-19-2023 ambulatory CHANEL BONILLA Not Available Start: 06-24-2023 End: 06-24-2023 ambulatory CHANEL BONILLA Not Available Start: 05-08-2023 End: 05-08-2023 ambulatory CHANEL BONILLA Not Available Start: 05-07-2023 End: 05-07-2023 Emergency department patient visit Manfred Watson Facility:[facility] Start: 04-23-2023 ambulatory Soumya Tai MD Facility:[facility] Start: 03-17-2023 End: 03-18-2023 ambulatory Bowen Roy MD Facility:[facility] Start: 01-04-2023 End: 01-04-2023 ambulatory Sanjay Luevano Other [facility] Other Start: 01-04-2023 Office outpatient ne w 20 minutes Sanjay Luevano [facility] Start: 11-29-2021 ambulatory UNKNOWN PROVIDER [facility] Start: 02-23-2019 End: 02-23-2019 Subsequent hospital visit by physician CL[facility] Start: 04-04-2017 End: 04-04-2017 Emergency department patient visit Joaquim Hill Wilbertosandoval Facility:[facility] Procedures Date Procedure Procedure Detail Performing Clinician Start: 08-22-2023 Follow-up visit Follow-up SARITA JOY Plan of Treatment Date Care Activity Detail Author Start: 08-21-2024 Adult BMI Screening Adult BMI Screen ing [facility] Start: 08-21-2024 Tobacco Screening Tobacco Screening [facility] Start: 02-21-2023 Influenza vaccination Influenza Vacc ine [facility] Start: 10-25-2020 DTaP,Tdap and Td Vac cines (7 - Td or Tdap) DTaP,Tdap and Td Vaccines (7 - Td or Tdap) [facility] Start: 02-21-2019 Influenza vaccination Flu vaccine (# 1) [place], [place] Start: 2019 Cervical cancer screen Cervical canc er screen [place], [place] Start: 2019 Screening for malign ant neoplasm of cervix Pap Smear [facility] Start: 2017 DTaP/Tdap/Td vaccine (1 - Tdap) DTaP/Tdap/Td vaccine (1 - Tdap) [place], [place] Start: 01-13-2016 Adult BMI Follow Up Plan Adult BMI Follow Up Plan [facility] Start: 2014 Chlamydia screen Chlamydia screen [place], [place] Start: 2013 HIV screen HIV screen [place], [place] Start: 2013 HPV vaccine (1 - Fem monica 3-dose series) HPV vaccine (1 - Female 3-dose series) [place], [place] Start: 2011 Varicella Vaccine (1 of 2 - 13+ 2-dose series) Varicella Vaccine (1 of 2 - 13+ 2-dose series) [place], [place] Start: 2010 Depression Screening Depression Scre [facility] End: 02-23-2019 Cytopathology procedure, preparation of smear, genital source PAP SMEAR Lab Routine Once for 1 Occurrences starting 02/23/2019 until 02/23/2019 [place], [place] Comment on above: Once for 1 Occurrenc es starting 02/23/2019 until 02/23/2019 Cytopathology proced ure, preparation of smear, genital source PAP SMEAR Lab Routine 02/23/2019 12:00 PM EDT [place], [place] Payers Date Payer Category Payer Unknown [id number] 2023 Self-pay 2022 Unknown 2022 [employer] [place] [employer] [id number] 2017 [place] [employer] [id number] 2000 Unknown [id number] 2.16. [id number] 2000 Unknown [id number] 2.16. [id number] 2000 Unknown [id number] 2.16.8 40.1.889558.3.579.2.1286 1998 Unknown [id number] 2.16.84 0.1.592646.3.579.2.1258 1998 Unknown [id number] 2.16.84 0.1.617656.3.579.2.1258 1998 Unknown [id number] 2.16.84 0.1.645492.3.579.2.1258 1998 Unknown [id number] 2.16.84 0.1.038293.3.579.2.1258 1998 Unknown [id number] 2.16.84 0.1.842137.3.579.2.1258 1998 Unknown [id number] 2.16.84 0.1.710072.3.579.2.1258 1998 Unknown [id number] 2.16.84 0.1.433250.3.579.2.1258 1998 Unknown [id number] 2.16.84 0.1.566543.3.579.2.1258 1998 Unknown [id number] 2.16.84 0.1.356088.3.579.2.1258 1998 Unknown [id number] 2.16.84 0.1.796146.3.579.2.9 1998 Unknown [id number] 2.16.84 0.1.090181.3.579.2.1258 1998 Unknown [id number] 2.16.840 .1.380512.3.579.2.1258 2000 Unknown [id number] 2.16.840 .1.327349.3.579.2.1259 Unknown [id number] 2.16.8 40.1.655144.3.579.2.531 Social History Date Type Detail Facility Tobacco smoking status NHIS Unknown if ever smoked [place], [place] Start: 2000 Sex Assigned At Not on file [facility] [place], [place] Start: 05-11-2023 End: 08-22-2023 Sex Assigned At [facility] [employer] Other Start: 05-11-2023 Tobacco smoking status NHIS Never smoked tobacco [facility] Start: 05-11-2023 Tobacco use and exposure Smokeless tobacco non-user [facility] Start: 08-22-2023 Alcohol intake Current drinke r of alcohol (finding) [facility] Start: 05-11-2023 End: 08-22-2023 History of [address] [facility] Within the past 12 months we worried whether our food would run out before we got money to buy more. Never True [facility] History of Present illness Narrative 08-22-2023 Sarita Joy MD - 08/22/2023 12:30 PM EST Note Date & Type Note Facility 08-22-2023 History of Presen t illness Narrative Melissa Brown Short Date of visit: 08/22/2023 Date of : 2000 Age: 23 y.o. Patient Active Problem List Diagnosis Near syncope No Known Allergies Current Outpatient Medications Medication Sig Dispense Refill acidophilus-pectin, citrus 25 million cell -100 mg tablet Take by mouth 3 (three) times a day with meals. sertraline (ZOLOFT) 50 mg tablet Take 1 tablet (50 mg total) by mouth in the morning. No current facility-administered medications for this visit. 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 When she exercises she may feel her heart racing a little bit more than usual and she may feel some dizziness. She takes Zoloft for anxiety. Out recently. Past Medical History: Diagnosis Date Anxiety No data recorded No data recorded No data recorded History reviewed. No pertinent surgical history. History reviewed. No pertinent family history. Social History Socioeconomic History Marital status: Single Spouse name: Not on file Number of children: Not on file Years of education: Not on file Highest education level: Not on file Occupational History Not on file Tobacco Use Smoking status: Never Smokeless tobacco: Never Vaping Use Vaping Use: Never used Substance and Sexual Activity Alcohol use: Yes Drug use: Never Sexual activity: Not on file Other Topics Concern Caffeine Use Yes Social History Narrative Not on file Social Determinants of Health Financial Resource Strain: Not on file Food Insecurity: No Food Insecurity (05/11/2023) Hunger Screening Food Insecurity - Worry: Never True Food Insecurity - Inability: Never True Transportation Needs: Not on file Physical Activity: Not on file Stress: Not on file Social Connections: Not on file Interpersonal Safety: Not on file Housing Instability: Not on file Review of Systems Review of Systems Constitutional: Negative for malaise/fatigue. HENT: Negative for nosebleeds. Respiratory: Negative for cough, shortness of breath and wheezing. Hematologic/Lymphatic: Does not bruise/bleed easily. Musculoskeletal: Negative for joint pain, joint swelling, muscle cramps and muscle weakness. Gastrointestinal: Negative for abdominal pain, heartburn, nausea and vomiting. Genitourinary: Negative for hematuria. Neurological: Positive for dizziness, headaches and light-headedness. Negative for weakness. Psychiatric/Behavioral: Negative for depression. The patient is not nervous/anxious. CARDIOVASCULAR: Please review HPI. Physical Examination General appearance: Alert, oriented and cooperative. In no acute distress. Skin: Warm and dry to touch. Head: Normocephalic, without obvious abnormality, atraumatic. Ears, Nose, Mouth, Throat: Throat clear without erythema or exudate. Dentition intact. Eyes: Conjunctivae unremarkable, EOM intact. Neck: No JVD, No carotid bruit. Neck supple, trachea midline. Respiratory: Clear to auscultation bilaterally, no use of accessory muscles. Cardiovascular: RRR with normal S1 and S2 with no murmurs. Gastrointestinal: Soft, non-tender. Bowel sounds normal. Musculoskeletal: No peripheral edema. Neurologic: Oriented to time, person and place, affect appropriate. No focal/major motor defects noted. Psychiatric: Appropriate mood, memory and judgement. VITAL SIGNS: BP 122/88 Pulse 92 Ht 162.6 cm (5' 4.02 ) Wt 84.8 kg (187 lb) SpO2 99% BMI 32.08 kg/m No orders of the defined types were placed in this encounter. There are no discontinued medications. IMPRESSIONS/PLAN 1. Near syncope 1. Near-syncope most likely related to autonomic dysfunction. I told him not to bodily injury adjuster attention and to lay down should she feel dizzy or lightheaded. I do not feel any medical therapy is needed at the present time. 2. Anxiety for which she takes Zoloft. 3. Follow-up is needed. TODAYS ORDERS No orders of the defined types were placed in this encounter. FOLLOW UP Return if symptoms worsen or fail to improve. PCP: RENE ROGEL Referring Physician: RENE Rogel [address] [place] [address] documented in this encounter [facility] Evaluation note 01-04-2023 Note Date & Type Note Facility 01-04-2023 Evaluation note Encounter Date Diagnosis Assessment Notes Dec, Sore throat (ICD-10 - J02.9) strep pos, see above. Dec, Strep throat (ICD-10 - J02.0) Pt is to take abx as prescribed. take with food. Informed pt they are contagious for first 24 hrs on medication. Push fluids and rest. Pt denied work note today. Pt is to take otc antipyretic prn for fever and aches. Change toothbrush after 2-3 days. Pt is to be re-evaluated after treatment if sx worsen or don't improve by pcp. Pt is to call the office with any questions or concerns regarding dx and tx. Pt understood and agreed to treatment plan. [facility] Other Evaluation note Note Date & Type Note Facility Evaluation note Diagnosis Near syncope- Primary documented in this encounter [facility] History general Narrative - Reported Note Date & Type Note Facility History general Narrative - Reported Type Medical History anxiety [facility] Other Instructions Note Date & Type Note Facility Instructions Not on filedocumented in this en counter [facility] Summary Purpose Family History No Family History Records FoundNo Family History Records FoundNo Family History Records FoundNo Family History Records FoundNo Family History Records FoundNo Family History Records Found Advance Directives No Advanced Directives Records FoundDocuments on File Type Date Recorded Patient Dispensing Lead Expl anation Advance Directives and Living Will Power of Doll Surgeon Additional Source Comments INFORMATION SOURCE (unrecogn ized section and content) DATE CREATED AUTHOR 12/16/2017 [facility] DATE CREATED AUTHOR AUTHOR'S ORGANIZ ATION 12/08/2021 [facility] DATE CREATED AUTHOR AUTHOR'S ORGANIZ ATION 04/24/2023 [facility] DATE CREATED AUTHOR AUTHOR'S ORGANIZ ATION 06/05/2023 [facility] DATE CREATED AUTHOR AUTHOR'S ORGANIZ ATION 08/24/2023 [facility] DATE CREATED AUTHOR AUTHOR'S ORGANIZ ATION 03/01/2024 [facility] d[facility] Specialists EPIC REASON FOR VISIT (unrecogniz ed section and content) Reason Comments Follow-up OV- 3month F/U- Sche duled W/PT- Care Teams (unrecognized sec tion and content) 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 This clinical summary was aggregated from multiple sources. Caution should be exercised in using it in the provision of clinical care. This summary normalizes information from multiple sources, and as a consequence, information in this document may materially change the coding, format and clinical context of patient data. In addition, data may be omitted in some cases. CLINICAL DECISIONS SHOULD BE BASED ON THE PRIMARY CLINICAL RECORDS. [facility] provides no warranty or guarantee of the accuracy or completeness of information in this document.
[2024-03-23 22:05] VITALS: BP 117/75; PULSE 100
[2024-03-23 22:20] LABS: Bilirubin Urine NEGATIVE (NEGATIVE); Blood Urine NEGATIVE (NEGATIVE); Clarity Urine CLEAR (CLEAR); Color Urine LT. YELLOW (YELLOW); Glucose Urine UA NEGATIVE (NEGATIVE); Ketones Urine NEGATIVE (NEGATIVE); Leukocyte Esterase Urine LARGE (NEGATIVE); Nitrite Urine NEGATIVE (NEGATIVE); Protein Urine NEGATIVE (NEG/TRACE); Urine Microscopic Indicated YES; Urobilinogen Urine 0.2 EU/dL (0.2-1.0); pH Urine 6.5 (5.0-9.0)
[2024-03-23 22:26] LABS: Bacteria Urine LARGE #/HPF (NONE SEEN); Cast Seen? NONE SEEN #/LPF (NONE SEEN); Crystals Seen? None Seen #/HPF (None Seen); Mucus Urine SMALL (NONE SEEN); Squamous Epithelial Cell Urine FEW #/LPF (NONE/RARE); Urine Culture Indicated YES
== END 2024-03-23 23:40 | disposition home or self-care (01) ==
PROVIDERS: Admitting Provider Midwife; PCP Nurse Practitioner Family; Visit Provider Midwife
DX: O26.893 Other specified pregnancy related conditions, third trimester (principal); M54.9 Dorsalgia, unspecified; Z3A.38 38 weeks gestation of pregnancy
CPT/HCPCS: 59025; 81001; 87086; G0378; G0379

== ENCOUNTER 2024-04-20 00:05 | Inpatient (IN) | payer BC, SELFPAY ==
[2024-04-20] VITALS (39 sets, daily range): BP systolic 105–156; BP diastolic 56–87; PULSE 63–111; TEMP 35.3–37.1
--- OUTSIDE RECORDS SUMMARY | 2024-04-20 00:08 | XMS_ITS | CCD ---
Author Organization [facility] Care Team Providers Care Buttermaker Name Role Phone Joaquim Upton Sergio Unavailable Unavailable Ceferino Thurston Unavailable Unavailable Unavailable Primary Care Provider Unavailluther e PROVIDER, UNKNOWN Primary Care Unavailable Sanjay Luevano Unavailable Zaire GARCIA, Soumya Dan Attending Unavail able Manuela GARCIA, Bowen Allan Referring Unavaila heriberto Roy MD, Bowen Allan Attending Unavaila Manfred Argueta Attending Unavailable Manfred Watson Admitting Unavailable NON STAFF Primary Care Unavailable Macario PRINT BUYER-Chanel ROSA Primary Care Provider SARITA JOY Attending Unavailable CHANEL BONILLA Referring Unavailable CHANEL BONILLA Primary Care Unavailable Rafael GARCIA, Lidya Carpio Primary Care Provider [phone] Charlotte Jacobo DO Unavailable CHANEL BONILLA Attending Unavailable CHANEL BONILLA Attending Unavailable CHANEL BONILLA Attending Unavailable FLORO, JORDANA L Attending Unavailable [...] Attending Unavailable FLORO, JORDANA L Attending Unavailable Allergies Allergy Classification Reported Allergen(s) Allergy Type Date of Onset Reaction(s) Facility (1 source) No Known Medication Allergies; Translations: [No Known Medication Allergies] Propensity to adverse reactions to drug (disorder) [facility] Repository Medications Current Medications Medication Drug Class(es) Dates Sig (Normalized) Sig (Original) amoxicillin 875 mg / clavulanate 125 mg oral tablet (1 source) Penicillin-class Antibacterial Start: 01-04-2023 take 1 tablet by mouth every twelve hours Amoxicillin-Pot Clavulanate 875-125 MG 1 tablet Orally every 12 hrs for 10 day(s) Dec, Active lactobacillus acidophilus [id number] unt / pectin 100 mg oral tablet (1 source) acidophilus-pect in, citrus 25 million cell -100 mg tablet Take by mouth 3 (three) times a day with meals. 0 Active phenazopyridine hydrochloride 100 mg oral tablet (6 sources) Start: 03-04-2024 phenazopyridine (Pyridium) 100 MG tablet Indications: Urinary tract infection without hematuria, site unspecified Take 1 tablet (100 mg) by mouth 3 (three) times a day as needed for bladder spasms for up to 9 doses 10 tablet 03/04/2024 Active MV & Min w/FA-DHA ( GUMMIES PO) (6 sources) MV & Mi n w/FA-DHA ( GUMMIES PO) Take by mouth Active sertraline 50 mg oral tablet (2 sources) Serotonin Reuptake Inhibitor take 1 tablet by mouth in the morning sertraline (ZOLOFT) 50 mg tablet Take 1 tablet (50 mg total) by mouth in the morning. 0 Active take 1 tablet by mouth once arely y Sertraline HCl 50 MG 1 tablet Orally Once a day Active terconazole 4 mg/ml vaginal cream (1 source) Azole Antifungal Start: 03-17-2024 End: 03-24-2024 terconazole (Terazol 7) 0.4 % vaginal cream Indications: Yeast infection Insert 1 applicator into the vagina at bedtime for 7 days 45 g 03/17/2024 03/24/2024 Active Problems Active Problems Problem Classification Problem Date Documented Date Episodic/Chronic Anxiety disorders (6 sources) Anxiety; Translations: [Anxiety disorder, unspecified] Onset: 12-02-2022 12-02-2022 Chronic Conditions associated with dizziness or vertigo (1 source) Dizziness and giddiness; Translations: [Dizziness and giddiness] Onset: 05-07-2023 Episodic Other conditions (2 sources) Lmuye-vcn-awpnh at regardless of gestation period; Translations: [Other heavy for gestational age ] 04-12-2024 Episodic Other and delivery including normal (4 sources) Third trimester ; Translations: [Encounter for supervision of normal first , third trimester] 03-29-2024 Episodic Other screening for suspected conditions (not mental disorders or infectious disease) (2 sources) Patient encounter status; Translations: [Encounter for screening for Streptococcus B] 03-29-2024 Episodic Other upper respiratory infections (6 sources) Chronic sinusitis; Translations: [Chronic sinusitis, unspecified] Onset: 12-02-2022 12-02-2022 Chronic Other upper respiratory infections (2 sources) Acute pharyngitis, unspecified; Translations: [Streptococcal pharyngitis] Episodic Past or Other Problems Problem Classification Problem Date Documented Da te Episodic/Chronic Syncope (9 sources) Near syncope; Translations: [Syncope and collapse] Onset: 05-23-2023 08-22-2023 Episodic Results Test Name Value Interpretation Reference Range Facility TB UA (CLEAN/CATCH) SHOVEL 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 YELLOW YELLOW [facility] GLUCOSE URINE UA Negative NEGATIVE mg/dL [facility] Interpretation and review of laboratory results Abnormal [facility] Ketones Ql (U) Negative NEGATIVE mg/dL [facility] Leukocyte esterase Test strip Ql (U) LARGE Abnormal NEGATIVE [facility] NITRITE URINE Negative NEGATIVE [facility] pH (U) 6.5 [pH] 5.0 - 9.0 [facility] PROTEIN URINE Negative NEG/TRACE mg/dL [facility] SPECIFIC GRAVITY URINE 1.010 1.005 - 1.025 [facility] URINE MICROSCOPIC INDICATED YES [facility] UROBILINOGEN URINE 0.2 EU/dL 0.2 - 1.0 EU/dL [facility] US OB FOLLOW UP TRANSABDOMIN AL APPROACHon 02-20-2024 US OB FOLLOW UP TRANSABDOMINAL APPROACH TITLE OF [...] 1961 gm / 4 lbs, 5 oz (5047-4152 gm) [place] Normal: 1650 gm (5496-5371 gm) [place] Wt%: 99% for 30.5 wks [...] B (Bld) [Mass/Vol] 28.0 pg/mL Normal 5-100 [facility] Comment on above: Result Comment: PERF ORMED BY: [place] [address] PATHOLOGIST APRN HALEY PIERRE M.D. Performed By: #### D DIMER, PT, CMP, CK, BNP, HS TROP, CBC, MG, PTT #### [address] Complete Blood Count Auto Di ffon 05-07-2023 Basophils (Bld) [#/Vol] 0.1 10*3/uL Normal 0.0-0.2 [facility] Comment on above: Result Comment: PERF ORMED BY: [place] [address] PATHOLOGIST APRN HALEY PIERRE M.D. Performed By: #### D DIMER, PT, CMP, CK, BNP, HS TROP, CBC, MG, PTT #### [address] Basophils/100 WBC (Bld) 0.5 % Normal . [facility] Comment on above: Performed By: #### D DIMER, PT, CMP, CK, BNP, HS TROP, CBC, MG, PTT #### [address] Eosinophils (Bld) [#/Vol] 0.0 10*3/uL Normal 0.0-0.45 [facility] Comment on above: Performed By: #### D DIMER, PT, CMP, CK, BNP, HS TROP, CBC, MG, PTT #### [address] Eosinophils/100 WBC (Bld) 0.2 % Normal . [facility] Comment on above: Performed By: #### D DIMER, PT, CMP, CK, BNP, HS TROP, CBC, MG, PTT #### [address] Erythrocyte distribution width (RBC) [Ratio] 13.5 % Normal 11.9-15.3 [facility] Comment on above: Performed By: #### D DIMER, PT, CMP, CK, BNP, HS TROP, CBC, MG, PTT #### [address] Hematocrit (Bld) [Volume fraction] 43.7 % Normal 34.0-46.4 [facility] Comment on above: Performed By: #### D DIMER, PT, CMP, CK, BNP, HS TROP, CBC, MG, PTT #### [address] Hemoglobin (Bld) [Mass/Vol] 14.8 g/dL Normal 11.8-15.4 [facility] Comment on above: Performed By: #### D DIMER, PT, CMP, CK, BNP, HS TROP, CBC, MG, PTT #### [address] Lymphocytes (Bld) [#/Vol] 2.0 10*3/uL Normal 1.00-4.8 [facility] Comment on above: Performed By: #### D DIMER, PT, CMP, CK, BNP, HS TROP, CBC, MG, PTT #### [address] Lymphocytes/100 WBC (Bld) 20.0 % Normal . [facility] Comment on above: Performed By: #### D DIMER, PT, CMP, CK, BNP, HS TROP, CBC, MG, PTT #### [address] MCH (RBC) [Entitic mass] 28.2 pg Normal 24.7-34.3 [facility] Comment on above: Performed By: #### D DIMER, PT, CMP, CK, BNP, HS TROP, CBC, MG, PTT #### [address] MCV (RBC) [Entitic vol] 83.2 fL Normal 80-100 [facility] Comment on above: Performed By: #### D DIMER, PT, CMP, CK, BNP, HS TROP, CBC, MG, PTT #### [address] Mean Corpuscular HGB Conc 34.0 g/dL Normal 32.0-35.0 [facility] Comment on above: Performed By: #### D DIMER, PT, CMP, CK, BNP, HS TROP, CBC, MG, PTT #### [address] Monocytes (Bld) [#/Vol] 0.5 10*3/uL Normal 0.0-0.8 [facility] Comment on above: Performed By: #### D DIMER, PT, CMP, CK, BNP, HS TROP, CBC, MG, PTT #### [address] Monocytes/100 WBC (Bld) 19.49 % Normal 0.00-20.00 [facility] Comment on above: Performed By: #### D DIMER, PT, CMP, CK, BNP, HS TROP, CBC, MG, PTT #### [address] Monocytes/100 WBC (Bld) 4.7 % Normal . [facility] Comment on above: Performed By: #### D DIMER, PT, CMP, CK, BNP, HS TROP, CBC, MG, PTT #### [address] Neutrophils (Bld) [#/Vol] 7.5 10*3/uL Normal 1.8-7.7 [facility] Comment on above: Performed By: #### D DIMER, PT, CMP, CK, BNP, HS TROP, CBC, MG, PTT #### [address] Neutrophils/100 WBC (Bld) 74.6 % Normal . [facility] Comment on above: Performed By: #### D DIMER, PT, CMP, CK, BNP, HS TROP, CBC, MG, PTT #### [address] NRBC% 0.0 /100{WBC} Normal 0-0.5 [facility] Comment on above: Performed By: #### D DIMER, PT, CMP, CK, BNP, HS TROP, CBC, MG, PTT #### [address] Platelet mean volume (Bld) [Entitic vol] 9.2 fL Normal 6.3-10.7 [facility] Comment on above: Performed By: #### D DIMER, PT, CMP, CK, BNP, HS TROP, CBC, MG, PTT #### [address] Platelets (Bld) [#/Vol] 246 10*3/uL Normal 150-450 [facility] Comment on above: Performed By: #### D DIMER, PT, CMP, CK, BNP, HS TROP, CBC, MG, PTT #### [address] RBC (Bld) [#/Vol] 5.25 10*6/uL High 3.60-5.00 [facility] Comment on above: Performed By: #### D DIMER, PT, CMP, CK, BNP, HS TROP, CBC, MG, PTT #### [address] WBC (Bld) [#/Vol] 10.1 10*3/uL Normal 3.8-11.6 [facility] Comment on above: Performed By: #### D DIMER, PT, CMP, CK, BNP, HS TROP, CBC, MG, PTT #### [address] Comprehensive Metabolic Pane dian 05-07-2023 Albumin [Mass/Vol] 4.7 g/dL Normal 3.5-5.7 [facility] Comment on above: Performed By: #### D DIMER, PT, CMP, CK, BNP, HS TROP, CBC, MG, PTT #### [address] Albumin/Globulin [Mass ratio] 1.4 {ratio} Normal [facility] Comment on above: Performed By: #### D DIMER, PT, CMP, CK, BNP, HS TROP, CBC, MG, PTT #### [address] ALP [Catalytic activity/Vol] 77 U/L Normal 34-104 [facility] Comment on above: Performed By: #### D DIMER, PT, CMP, CK, BNP, HS TROP, CBC, MG, PTT #### [address] ALT [Catalytic activity/Vol] 15 U/L Normal 7-52 [facility] Comment on above: Performed By: #### D DIMER, PT, CMP, CK, BNP, HS TROP, CBC, MG, PTT #### [address] Anion gap [Moles/Vol] 11.3 mmol/L Normal 6.0-15.0 [facility] Comment on above: Performed By: #### D DIMER, PT, CMP, CK, BNP, HS TROP, CBC, MG, PTT #### [address] AST [Catalytic activity/Vol] 16 U/L Normal 13-39 [facility] Comment on above: Performed By: #### D DIMER, PT, CMP, CK, BNP, HS TROP, CBC, MG, PTT #### [address] Bilirubin [Mass/Vol] 0.5 mg/dL Normal 0.3-1.0 [facility] Comment on above: Performed By: #### D DIMER, PT, CMP, CK, BNP, HS TROP, CBC, MG, PTT #### [facility] [address] [place] [address] Calcium [Mass/Vol] 9.8 mg/dL Normal 8.6-10.3 [facility] Comment on above: Performed By: #### D DIMER, PT, CMP, CK, BNP, HS TROP, CBC, MG, PTT #### [address] Chloride [Moles/Vol] 102 mmol/L Normal 98-107 [facility] Comment on above: Performed By: #### D DIMER, PT, CMP, CK, BNP, HS TROP, CBC, MG, PTT #### [facility] [address] CO2 [Moles/Vol] 26.5 mmol/L Normal 21.0-31.0 [facility] Comment on above: Performed By: #### D DIMER, PT, CMP, CK, BNP, HS TROP, CBC, MG, PTT #### [facility] [address] Creatinine [Mass/Vol] 0.57 mg/dL Low 0.60-1.20 [facility] Comment on above: Performed By: #### D DIMER, PT, CMP, CK, BNP, HS TROP, CBC, MG, PTT #### [facility] [address] Creatinine Clr Calc Pharmacy 152.63 [facility] Comment on above: Performed By: #### D DIMER, PT, CMP, CK, BNP, HS TROP, CBC, MG, PTT #### [address] GFR/1.73 sq M.predicted MDRD (S/P/Bld) [Vol rate/Area] mL/min/{1.73_m2} [facility] Comment on above: Performed By: #### D DIMER, PT, CMP, CK, BNP, HS TROP, CBC, MG, PTT #### [facility] [address] Globulin (S) [Mass/Vol] 3.3 g/dL [facility] Comment on above: Performed By: #### D DIMER, PT, CMP, CK, BNP, HS TROP, CBC, MG, PTT #### [facility] [address] Glucose [Mass/Vol] 94 mg/dL Normal 70-100 [facility] Comment on above: Result Comment: [facility] Glucose Reference Range is dependent on time and content of last meal. Glucose of more than 200 mg/dL in a nonstressed, ambulatory subject supports the diagnosis of Diabetes Mellitus. ADA recommended reference range Performed By: #### D DIMER, PT, CMP, CK, BNP, HS TROP, CBC, MG, PTT #### [address] Potassium [Moles/Vol] 3.8 mmol/L Normal 3.5-5.1 [facility] Comment on above: Performed By: #### D DIMER, PT, CMP, CK, BNP, HS TROP, CBC, MG, PTT #### [address] Protein [Mass/Vol] 8.0 g/dL Normal 6.4-8.9 [facility] Comment on above: Performed By: #### D DIMER, PT, CMP, CK, BNP, HS TROP, CBC, MG, PTT #### [address] Sodium [Moles/Vol] 136 mmol/L Normal 136-145 [facility] Comment on above: Performed By: #### D DIMER, PT, CMP, CK, BNP, HS TROP, CBC, MG, PTT #### [address] Urea nitrogen [Mass/Vol] 9 mg/dL Normal 7-25 [facility] Comment on above: Performed By: #### D DIMER, PT, CMP, CK, BNP, HS TROP, CBC, MG, PTT #### [address] Creatine Kinaseon 05-07-2023 CK [Catalytic activity/Vol] 70 U/L Normal 30-223 [facility] Comment on above: Performed By: #### D DIMER, PT, CMP, CK, BNP, HS TROP, CBC, MG, PTT #### [address] D-Dimer High Sensitivityon 1 07-07-2022 D-Dimer High Sensitivity < 200 Normal 0-243 [facility] Comment on above: Result Comment: The [...] coagulation studies. Please contact the laboratory at [phone] for redraw instructions. PERFORMED BY: [place] [address] PATHOLOGIST APRN HALEY PIERRE M.D. Performed By: #### G LULS #### Point of Care testing , ECG 12 lead ECGon 05-07-2023 ECG 12 lead ECG [facility] [employer] [address] [place] [id number] Electrocardiograph Report Signed Patient: Melissa Naavrro MR#: [id number] : 2000 Acct:[id number] Age/Sex: 23 / F ADM Date: 05/07/23 Loc: ER Room: Type: [facility] ER Attending Dr: Ordering Provider: Manfred Watson [...] sinus rhythm Confirmed by Manfred WATSON DO ([id number]) on 05/07/2023 4:15:35 PM Referred By: Electronically Signed By:Manfred WATSON DO Transcribed By: MUS Signed By Manfred Watson DO 07/07/22 1615 Normal [facility] Glucose Poct Glucometerson 1 07-07-2022 Glucose [Mass/Vol] 86 mg/dL Normal [facility] Comment on above: Result Comment: [place] Glucose Reference Range is dependent on time and content of last meal. Glucose of more than 200 mg/dL in a nonstressed, ambulatory subject supports the diagnosis of Diabetes Mellitus. PERFORMED BY: [place] [address] PATHOLOGIST APRN HALEY PIERRE M.D. Performed By: #### G LULS #### Point of Care testing , HCG,Urineon 05-07-2023 Beta HCG ( test) Ql (U) Negative Normal [facility] Comment on above: Result Comment: PERF ORMED BY: [place] [address] PATHOLOGIST APRN HALEY PIERRE M.D. Performed By: #### G LULS #### Point of Care testing , Magnesiumon 05-07-2023 Magnesium [Mass/Vol] 2.0 mg/dL Normal 1.9-2.7 [facility] Comment on above: Result Comment: PERF ORMED BY: [place] [address] PATHOLOGIST APRN HALEY PIERRE M.D. Performed By: #### D DIMER, PT, CMP, CK, BNP, HS TROP, CBC, MG, PTT #### [place] [address] [place] Partial Thromboplastin Timeo n 05-07-2023 aPTT Coag (Bld) [Time] 30.5 s Normal 25.1-36.5 [facility] Comment on above: Result Comment: A he matocrit value greater than 55% may lead to inaccurate results in coagulation testing. Patients having hematocrit values >55% require a special collection tube for coagulation studies. Please contact the laboratory at [phone] for redraw instructions. Performed By: #### G LULS #### Point of Care testing , Prothrombin Time INRon 05-07 INR Coag (PPP) [Relative time] 1.0 {INR} Normal [facility] Comment on above: Result Comment: INR [...] Coag (PPP) [Time] 12.1 s Normal 9.0-12.9 [facility] Comment on above: Result Comment: A he matocrit value greater than 55% may lead to inaccurate results in coagulation testing. Patients having hematocrit values >55% require a special collection tube for coagulation studies. Please contact the laboratory at [phone] for redraw instructions. Performed By: #### G LULS #### Point of Care testing , Troponin I High Sensitivityo n 05-07-2023 Troponin I High Sensitivity < 2.3 Normal 0.0-15.0 [facility] Comment on above: Result Comment: PERF ORMED BY: [place] [address] PATHOLOGIST APRN HALEY PIERRE M.D. Performed By: #### D DIMER, PT, CMP, CK, BNP, HS TROP, CBC, MG, PTT #### [facility] [address] [place] [address] Urinalysison 05-07-2023 Appearance (U) Clear Normal Clear [facility] Comment on above: Order Comment: Name Collection Type:: Clean-Voided Midstream Performed By: #### U A #### [facility] [address] [place] [address] Bilirubin,Urine Negative Normal Negative [facility] Comment on above: Order Comment: Name Collection Type:: Clean-Voided Midstream Performed By: #### U A #### [facility] [address] [place] [address] [place] Color (U) Yellow Normal Yellow [facility] Comment on above: Order Comment: Name Collection Type:: Clean-Voided Midstream Performed By: #### U A #### [facility] [address] [place] [address] Glucose Ql (U) Normal Normal Normal [facility] Comment on above: Order Comment: Name Collection Type:: Clean-Voided Midstream Performed By: #### U A #### [facility] [address] [place] [address] Ketones Ql (U) Negative Normal Negative [facility] Comment on above: Order Comment: Name Collection Type:: Clean-Voided Midstream Performed By: #### U A #### [address] Leukocyte esterase Test strip Ql (U) Negative Normal Negative [facility] Comment on above: Order Comment: Name Collection Type:: Clean-Voided Midstream Performed By: #### U A #### [address] Nitrite,Urine Negative Normal Negative [facility] Comment on above: Order Comment: Name Collection Type:: Clean-Voided Midstream Performed By: #### U A #### [address] Occult Blood,Urine Negative Normal Negative [facility] Comment on above: Order Comment: Name Collection Type:: Clean-Voided Midstream Result Comment: PERF ORMED BY: [place] [address] PATHOLOGIST APRN HALEY PIERRE M.D. Performed By: #### U A #### [place] [address] [place] pH (U) 7.0 [pH] Normal 5.0-9.0 [facility] Comment on above: Order Comment: Name Collection Type:: Clean-Voided Midstream Performed By: #### U A #### [place] [address] [place] Protein,Urine Negative Normal Negative [facility] Comment on above: Order Comment: Name Collection Type:: Clean-Voided Midstream Performed By: #### U A #### [address] Specificy Harts,Urine 1.005 Normal 1.001-1.030 [facility] Comment on above: Order Comment: Name Collection Type:: Clean-Voided Midstream Performed By: #### U A #### [facility] [address] [place] [id number] [facility] Urobilinogen,Urine Normal Normal Normal [facility] Comment on above: Order Comment: Name Collection Type:: Clean-Voided Midstream Performed By: #### U A #### [facility] [address] [place], [place] [id number] [facility] XR chest 2V*on 05-07-2023 XR chest 2V* [facility] [employer] [address] [place] [address] XRay Report Signed Patient: Melissa Navarro MR#: [id number] : 2000 Acct:[id number] Age/Sex: 23 / F ADM Date: 05/07/23 Loc: ER Room: Type: [facility] ER Attending Dr: Copies to: Manfred Watson [...] Lennox Mercer M.D.05/07/2023 2:43 PM Dictation Location: [place] [address] Transcribed By: [facility] 05/07/23 144 Dictated By: Lennox Mercer II, MD 05/07/23 1442 Signed By: 05/07/23 1443 [facility] Otolaryngology Office/Clinic Noteon 03-17-2023 Otolaryngology Office/Clinic Note Chief Complaint pt states here for my tonsils, they were touching History of Present Illness 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 pyogenes Org specific cx Ql (Throat) Positive [employer] Other Quick Strep [place] [employer] [place] Other PAPon 12-07-2021 Microscopic observation Cyto stain Nom (Cvx) SEE BELOW Normal [facility] Comment on above: Result Comment: INTERPRETATION Cervical-Endocervical material, (Thin prep vial, Imaging-assisted review): Specimen Adequacy: Satisfactory for evaluation. -Endocervical/transformation zone component is absent. Descriptive Diagnosis: NEGATIVE FOR INTRAEPITHELIAL LESION OR MALIGNANCY. Account Management Assistant: OLENA GONZALEZ(ASCP) Electronically Signed Out /12/07/2021 Clinical History: Depo Provera Z12.4 Encounter for screening for malignant neoplasm of cervix High risk HPV DNA testing is requested if the diagnosis is abnormal Source of Specimen: A: Cervical-Endocervical material, (Thin prep vial, Imaging-assisted review) Specimen was processed and screened at [facility], [address] [place] [address] [id number] The Pap smear is a screening test designed to aid in the detection of premalignant and malignant conditions of the uterine cervix. It is not a diagnostic procedure and should not be used as the sole means of detecting cervical cancer. Both false-positive and false-negative reports do occur. Patient Name: MELISSA NAVARRO MR#: [id number] Performed By: #### I PAP #### [employer] [address] [place] [address] ER Physician Documentationon 04-08-2017 ER Physician Documentation [facility] Patient: MELISSA NAVARRO [address] : 2000 [place], [place] [address] Location: ER [phone] Unit #: [id number] ER Physician Documentation Service Date:04/04/17 ER Provider: Joaquim Upton MD - Chest Pain Time Seen by Provider: 04/04/17 14:23 Arrival Mode: Private Vehicle Historian: Patient - History of Present Illness Stated Complaint: SENT BY / CHEST PAIN Symptoms Began: Today Symptoms Still [...] and management services were performed by the REPORTING PROCESS CONSULTANT/PA-C/Resident under my supervision/collabora tion with my participation. [...] agrees with the testing and care provided. Babak Pardo, documented the Shared Attending Note and EKG on behalf of Dr. Joaquim Upton MD. cc: Ceferino Thurston MD Dictated by: Jaun Barber on 04/04/171424 Transcribed by: Jaun Quinteros on 04/04/17 142 Report Signed by: Basilio Martin PA-C on 04/08/17 1551 < > Report Signed by: Joaquim Upton MD on 04/04/17 1950 < > Report Signed by: on Report Signed by: on Co-Signer: Basilio Martin PA-C on 04/08/17 1551 < > Normal [facility] EKG Monitoringon 04-05-2017 EKG Monitoring [facility] Patient: MELISSA NAVARRO. : 2000 [place], [place] [address] Location: [facility] [phone] Unit #: [id number] EKG Monitoring Lenny Mendoza DO Exam Date/Time [...] Dictated by: Lenny Mendoza DO on 04/04/17 1424 Transcribed by: [employer] M-AT on 04/05/17 1533 Report Signed by: Lenny Mendoza DO on 04/05/17 1534 Normal [facility] D-Dimeron 04-04-2017 D-Dimer (D-DU) 192 ng/mL Normal <230 [facility] Comment on above: Result Comment: When D-Dimer level is less than 230 ng/mL, probability of DVT and PE is low (based on the studies done by the montessori paraprofessional and [facility] lab). If D-Dimer level is greater than 230 ng/mL, correlation with clinical findings and/or other modalities is suggested to exclude thromboembolic events. (These guidelines do not apply to patients on anticoagulants). Performed By: #### L 200.1210 ####Main Laboratory ([facility])[address], [place] [phone] Nivar, MD XR Chest 1 View Portableon XR Chest 1 View Portable [facility] Radiology Department Patient: MELISSA NAVARRO [address]. : 2000 Sex: Balaji Baig [place] [address] Location: [phone] Unit #: [id number] Ordering Phys: Basilio Martin PA-C Exam Date: [...] on 04/04/17 1540 Report Signed by: Jb GARCIA,Misti Caro on 04/04/17 1540 Normal [facility] Vital Signs Date Time Vital Sign Value Performing Clinician Facility 04-12-2024 18:30-0400 Body mass index (BMI) [Ratio] 38.44 kg/m2 [facility] Work Phone: [facility] 04-12-2024 18:30-0400 Body weight 104.78 kg Jordana [facility] Work Phone: [facility] [place] [facility] 04-12-2024 18:30-0400 Diastolic blood pressure 80 mm[Hg] [facility] Work Phone: [facility] [place] [facility] 04-12-2024 18:30-0400 Systolic blood pressure 120 mm[Hg] [facility] Work Phone: [facility] [place] [facility] 03-29-2024 18:18-0400 Body mass index (BMI) [Ratio] 38.27 kg/m2 Jordana POOLM Work Phone: [facility] [place] [facility] 03-29-2024 18:18-0400 Body weight 104.33 kg Jordana POOLM Work Phone: [facility] [place] [facility] 03-29-2024 18:18-0400 Diastolic blood pressure 82 mm[Hg] Jordana Kim CNM Work Phone: [facility] [place] [facility] 03-29-2024 18:18-0400 Systolic blood pressure 120 mm[Hg] Jordana POOLM Work Phone: [facility] [place] [facility] 08-22-2023 12:15-0500 Body height 162.6 cm Sarita Joy MD Work Phone: [facility] 08-22-2023 12:15-0500 Body mass index (BMI) [Ratio] 32.08 kg/m2 Sarita Joy MD Work Phone: [facility] 08-22-2023 12:15-0500 Body weight 84.82 kg Sarita Joy MD Work Phone: [facility] 08-22-2023 12:15-0500 Diastolic blood pressure 88 mm[Hg] Sarita Joy MD Work Phone: [facility] 08-22-2023 12:15-0500 Heart rate 92 /min aSrita Joy MD Work Phone: [facility] 08-22-2023 12:15-0500 SaO2% (BldA) [Mass fraction] 99 % Sarita Joy MD Work Phone: [facility] 08-22-2023 12:15-0500 Systolic blood pressure 122 mm[Hg] Sarita Joy MD Work Phone: [facility] 01-04-2023 10:00-0400 Body height 162.56 cm Sanjay Luevano Other [facility] Other 01-04-2023 10:00-0400 Body mass index (BMI) [Ratio] 29.86 kg/m2 Sanjay Luevano Other [facility] Other 01-04-2023 10:00-0400 Body temperature 98 [degF] Maria Teresaolena Luevano Other [facility] Other 01-04-2023 10:00-0400 Body weight 78.93 kg Sanjay Luevano Other [facility] Other 01-04-2023 10:00-0400 Respiratory rate 18 /min Sanjay Luevano Other [facility] Other 01-04-2023 10:00-0400 SaO2% (BldA) [Mass fraction] 98 % Maria Teresaolena Luevano Other [facility] Other Encounters Encounter Date Encounter Type Care Provider Facility Start: 04-12-2024 End: 04-12-2024 Subsequent care visit Jordana Kim CN Work Phone: [facility] Comment on above: Large for dates (Zoe lidya Dx); Encounter for care of first , third trimester Start: 04-12-2024 End: 04-12-2024 ambulatory JORDANA L FLORO Not Available Start: 03-29-2024 End: 03-29-2024 ambulatory JORDANA L FLORO Not Available Start: 03-29-2024 End: 03-29-2024 Subsequent care visit Jordana Kerro CN Work Phone: [facility] Comment on above: Encounter for prenat al care of first , third trimester (Primary Dx); screening for streptococcus B Start: 03-29-2024 End: 03-29-2024 Bamboo flowsheet Jordana Kerro CN Work Phone: [facility] Start: 03-29-2024 End: 03-29-2024 Bamboo flowsheet Jordana L Floro CNM Work Phone: [facility] Start: 03-23-2024 End: 03-23-2024 Clinisync Result Encounter Jordana L Floro CNM Work Phone: [facility] Unsolicited Start: 03-23-2024 End: 03-23-2024 Clinisync Result Encounter Jordana L Floro CNM Work Phone: [facility] Unsolicited Start: 03-17-2024 End: 03-17-2024 ambulatory JORDANA L FLORO Not Available Start: 02-25-2024 End: 02-25-2024 ambulatory JORDANA L [...] Not Available Start: 08-22-2023 End: 08-22-2023 ambulatory SARITA JOY [facility] Start: 08-22-2023 End: 08-22-2023 Office outpatient visit 15 minutes Sarita Joy MD Work Phone: [facility] Comment on above: Near syncope (Primar y Dx) Start: 08-19-2023 End: 08-19-2023 ambulatory CHANEL R BONILLA Not Available Start: 06-24-2023 End: 06-24-2023 ambulatory CHANEL R BONILLA Not Available Start: 05-08-2023 End: 05-08-2023 ambulatory CHANEL R BONILLA Not Available Start: 05-07-2023 End: 05-07-2023 Emergency department patient visit Manfred Watson Facility:[facility] Start: 04-23-2023 ambulatory Soumya Tai MD Facility:[facility] [place] Start: 03-17-2023 End: 03-18-2023 ambulatory Bowen Roy MD Facility:[facility] Start: 01-04-2023 End: 01-04-2023 ambulatory Sanjay Luevano Other [place] [employer] Other Start: 01-04-2023 Office outpatient ne w 20 minutes Sanjay Luevano [facility] Start: 11-29-2021 ambulatory UNKNOWN PROVIDER [facility] Start: 02-23-2019 End: 02-23-2019 Subsequent hospital visit by physician [facility] Start: 04-04-2017 End: 04-04-2017 Emergency department patient visit Joaquim Upton Facility:[facility] Procedures Date Procedure Procedure Detail Performing Clinician Start: 03-23-2024 [facility] UA (CLEAN/CATCH) SHOVEL OPERATOR/MICRO IF IND. Jordana Kim CNM Work Phone: Start: 08-22-2023 Follow-up visit Follow-up SARITA JOY Plan of Treatment Date Care Activity Detail Author Start: 08-21-2024 Adult BMI Screening Adult BMI Screen ing [facility] Start: 08-21-2024 Tobacco Screening Tobacco Screening [facility] Start: 04-26-2024 End: 04-26-2024 Patient encounter procedure 04/26/2024 6:00 PM EST Routine [facility] [address] [place] [address] Jordana Kim CNM [address] [place] [address] [facility] Start: 04-19-2024 End: 04-19-2024 Patient encounter procedure 04/19/2024 6:00 PM EDT Routine [facility] [address] [place] [address] Jordana Kim, CNM [address] [facility] ([place], [place] [address] [facility] Start: 04-19-2024 End: 04-19-2024 Professional / ancillary services management 04/19/2024 5:45 PM EDT Ancillary Procedure [facility] [address] [place] [phone] [facility] Start: 04-12-2024 End: 04-12-2024 Patient encounter procedure 04/12/2024 6:15 PM EDT Routine [facility] [address] [facility] [phone] Jordana Kim, CNM [address] [facility] [place] [address] [facility] Start: 04-12-2024 End: 04-12-2025 US for US OB follow up transabdominal approach Imaging Routine Large for dates Expected: 04/12/2024, Expires: 04/12/2025 [facility] Work Phone: Comment on above: Expected: 04/12/2024 , Expires: 04/12/2025 Start: 03-29-2024 End: 03-29-2024 Patient encounter procedure 03/29/2024 6:15 PM EDT Routine [facility] [address] [facility] [id number] Jordana Kim, CNM [address] [facility] [place] [address] [facility] Start: 03-29-2024 End: 03-29-2025 STREPTOCCOUS, GROUP B CULTURE STREPTOCCOUS, GROUP B CULTURE Lab Routine screening for streptococcus B Expected: 03/29/2024 (Approximate), Expires: 03/29/2025 [facility] Work Phone: Comment on above: Expected: 03/29/2024 (Approximate), Expires: 03/29/2025 Start: 02-22-2024 Influenza vaccination Influenza Vacc ine (#1) [facility] [place] [facility] Start: 02-21-2023 Influenza vaccination Influenza Vacc ine [facility] Start: 10-25-2020 DTaP,Tdap and Td Vaccines (7 - Td or Tdap) DTaP,Tdap and Td Vaccines (7 - Td or Tdap) [facility] Start: 02-21-2019 Influenza vaccination Flu vaccine (# 1) [place], [place] Start: 2019 Cervical cancer screen Cervical canc er screen [place], [place] Start: 2019 Screening for malign ant neoplasm of cervix Pap Smear [facility] Start: 2017 DTaP/Tdap/Td vaccine (1 - Tdap) DTaP/Tdap/Td vaccine (1 - Tdap) [place] Start: 01-13-2016 Adult BMI Follow Up Plan Adult BMI Follow Up Plan [facility] Start: 2014 Chlamydia screen Chlamydia screen [place], [place] Start: 2013 HIV screen HIV screen [place], [place] Start: 2013 HPV vaccine (1 - Fem monica 3-dose series) HPV vaccine (1 - Female 3-dose series) [place] Start: 2011 Varicella Vaccine (1 of 2 - 13+ 2-dose series) Varicella Vaccine (1 of 2 - 13+ 2-dose series) [place] Start: 2010 Depression Screening Depression Scre ening [facility] End: 02-23-2019 Cytopathology procedure, preparation of smear, genital source PAP SMEAR Lab Routine Once for 1 Occurrences starting 02/23/2019 until 02/23/2019 [place] Comment on above: Once for 1 Occurrenc es starting 02/23/2019 until 02/23/2019 Cytopathology procedure, preparation of smear, genital source PAP SMEAR Lab Routine 02/23/2019 12:00 PM EDT [place] Immunizations Immunization Date Immunization Notes Care Provider Roger balbuena 01-29-2016 meningococcal polysaccharide (groups A, C, Y and W-135) diphtheria toxoid conjugate vaccine (MCV4P) Jordana Kim CNM Work Phone: [facility] [place] [facility] 10-25-2010 tetanus toxoid, redu jason diphtheria toxoid, and acellular pertussis vaccine, adsorbed Jordana Floro CN Work Phone: [facility] 01-05-2004 diphtheria, tetanus toxoids and acellular pertussis vaccine, unspecified formulation Jordana Floro CNM Work Phone: [facility] 01-05-2004 measles, mumps and r ubella virus vaccine Jordana Floro CN Work Phone: [facility] [place] [facility] 01-05-2004 poliovirus vaccine, inactivated Jordana Floro CN Work Phone: [facility] 05-31-1999 diphtheria, tetanus toxoids and acellular pertussis vaccine, unspecified formulation Jordana Floro CN Work Phone: [facility] 05-31-1999 haemophilus influenz ae type b vaccine, conjugate unspecified formulation Jordana Floro [facility] Work Phone: [facility] 02-01-1999 hepatitis B vaccine, pediatric or pediatric/adolescent dosage Jordana Floro CN Work Phone: [facility] 02-01-1999 measles, mumps and r ubella virus vaccine Jordana Floro CN Work Phone: [facility] 1998 diphtheria, tetanus toxoids and acellular pertussis vaccine, unspecified formulation Jordana Floro CN Work Phone: [facility] 1998 haemophilus influenz ae type b vaccine, conjugate unspecified formulation Jordana Floro CN Work Phone: [facility] 1998 trivalent poliovirus vaccine, live, oral Jordana Floro CN Work Phone: [facility] 1998 diphtheria, tetanus toxoids and acellular pertussis vaccine, unspecified formulation Jordana Floro CN Work Phone: [facility] 1998 haemophilus influenz ae type b vaccine, PRP-OMP conjugate Jordana Floro CN Work Phone: [facility] 1998 hepatitis B vaccine, pediatric or pediatric/adolescent dosage Jordana Floro CNM Work Phone: [facility] 1998 poliovirus vaccine, inactivated Jordana Floro CNM Work Phone: [facility] 1998 diphtheria, tetanus toxoids and acellular pertussis vaccine, unspecified formulation Jordana Floro CNM Work Phone: [facility] 1998 haemophilus influenz ae type b vaccine, PRP-OMP conjugate Jordana Floro CNM Work Phone: [facility] 1998 hepatitis B vaccine, pediatric or pediatric/adolescent dosage Jordana Floro CNM Work Phone: [facility] 1998 poliovirus vaccine, inactivated Jordana Floro CNM Work Phone: [facility] Payers Date Payer Category [facility]ayer [facility] [id number] 2024 Unknown [id number] 2023 Self-pay 2022 Unknown 2022 Blue Cross Blue Shield [id number] 2017 Blue Cross Blue Shield [id number] 2000 Unknown [id number] 2.16.840.1.542966.3.579.2 .196 2000 Unknown [id number] 2.16.840.1.019823.3.579.2 .196 1998 Unknown [id number] 2.16.840.1.140199.3.579.2 .1286 1998 Unknown [id number] 2.16.840.1.781958.3.579.2 .1258 1998 Unknown [id number] 2.16.840.1.307647.3.579.2 .1258 1998 Unknown [id number] 2.16.840.1.349869.3.579.2 .1258 1998 Unknown [id number] 2.16.840.1.060232.3.579.2 .1258 1998 Unknown [id number] 2.16.840.1.077472.3.579.2 .1258 1998 Unknown [id number] 2.16.840.1.278716.3.579.2 .1258 1998 Unknown [id number] 2.16.840.1.688352.3.579.2 .1258 1998 Unknown [id number] 2.16.840.1.419568.3.579.2 .1258 1998 Unknown [id number] 2.16.840.1.821038.3.579.2 .1258 1998 Unknown [id number] 2.16.840.1.141928.3.579.2 .1258 1998 Unknown [id number] 2.16.840.1.163276.3.579.2 .1258 1998 Unknown [id number] 2.16.840.1.824258.3.579.2 .1258 1998 Unknown [id number] 2.16.840.1.355089.3.579.2 .1258 1998 Unknown [id number] 2.16.840.1.705389.3.579.2 .1259 1998 Unknown [id number] 2.16.840.1.488783.3.579.2 .1259 1998 Unknown [id number] 2.16.840.1.838624.3.579.2 .1259 Unknown [id number] 2.16.840.1.083232.3.579.2 .531 Social History Date Type Detail Facility Tobacco smoking stat us PRIS Unknown if ever smoked [employer] [facility] Start: 2000 Sex Assigned At Not on file [facility] [employer] Start: 12-02-2022 End: 08-22-2023 Sex Assigned At [facility] [employer] Other Start: 12-31-2022 End: 05-11-2023 Tobacco smoking status NHIS [facility] [employer] Start: 12-31-2022 End: 05-11-2023 Tobacco use and exposure Smokeless tobacco [facility]-user [facility] Start: 08-22-2023 End: 09-16-2023 Alcohol intake Current drinker of alcohol (finding) [facility] Start: 12-02-2022 End: 08-22-2023 History of Social function [facility] Within the past 12 months we worried whether our food would run out before we got money to buy more. Never True [facility] Within the last year , have you been afraid of your partner or ex-partner? No [facility] Are you now , , , , never or living with a partner? Living with partner [facility] How often to you hav e a drink containing alcohol? 2-4 times a month [facility] How many standard drinks containing alcohol do you have on a typical day? 3 or 4 [facility] How often do you hav e 6 or more drinks on 1 occasion? Never [facility] How hard is it for y ou to pay for the very basics like food, housing, medical care, and heating Not very hard [facility] Do you feel stress - tense, restless, nervous, or anxious, or unable to sleep at night because your mind is troubled all the time - these days [OSQ] Rather much [facility] (I/We) worried wheth er (my/our) food would run out before (I/we) got money to buy more. Never true [facility] Start: 12-02-2022 Alcohol Comment caffeine: 1-2 cups per day [facility] Start: 08-05-2023 [facility] History of Present illness Narrative 04-12-2024 Jordana Kim CNM - 04/12/2024 6:15 PM EDT Note Date & Type Note Facility 04-12-2024 History of Presen t illness Narrative Subjective No chief complaint on file. Melissa Che is a 24 y.o. at 37w6d with a working estimated date of delivery of 04/27/2024, by Last Menstrual Period who presents for a routine visit. She denies vaginal bleeding, leakage of fluid, decreased movements, or contractions. OB History Para Term AB Living 1 0 0 0 0 0 SAB IAB Ectopic Multiple Live Births 0 0 0 0 0 # Outcome Date GA Lbr Richard/2nd Weight Sex Type Anes PTL Lv 1 Current Obstetric Comments Unsure if ever had pap smear Her is complicated by: Objective Physical Exam weight: 231 lb Expected Total Weight Gain: 11 lb-19 lb Pregravid BMI: 31.12 BP: 120/80 Urine protein-15 Urine glucose-negative Assessment/Plan Diagnoses and all orders for this visit: Large for dates - US OB follow up transabdominal approach; Future Encounter for care of first , third trimester Continue vitamin. Labs reviewed. GBS negative Expected mode of delivery Follow up in 1 week for a routine visit. And elective IOL on Friday04/19/24 cervidil. SVE next week documented in this encounter [facility] History of Present illness Narrative 03-29-2024 Jordana Kim CNM - 03/29/2024 6:15 PM EDT Note Date & Type Note Facility 03-29-2024 History of Presen t illness Narrative Subjective No chief complaint on file. Melissa Che is a 24 y.o. at 35w6d with a working estimated date of delivery of 04/27/2024, by Last Menstrual Period who presents for a routine visit. She denies vaginal bleeding, leakage of fluid, decreased movements, or contractions. OB History Para Term AB Living 1 0 0 0 0 0 SAB IAB Ectopic Multiple Live Births 0 0 0 0 0 # Outcome Date GA Lbr Richard/2nd Weight Sex Type Anes PTL Lv 1 Current Obstetric Comments Unsure if ever had pap smear Her is complicated by:- swollen legs Objective Physical Exam weight: 230 lb Expected Total Weight Gain: 11 lb-19 lb Pregravid BMI: 31.12 BP: 120/82 Urine protein-negative Urine glucose-negative Assessment/Plan Diagnoses and all orders for this visit: Encounter for care of first , third trimester screening for streptococcus B - STREPTOCCOUS, GROUP B CULTURE; Future Continue vitamin. Labs reviewed. GBS done today Expected mode of delivery Follow up in 1 week for a routine visit. 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 When she exercises she may [...] autonomic dysfunction. I told him not to building inspector attention and to lay down should she [...] PCP: RENE ROGEL Referring Physician: RENE Rogel [address] [place] [address] documented in this encounter [facility] 01-04-2023 Note Date & Type [...] Pt understood and agreed to treatment plan. [employer] Other Evaluation note Note Date & Type Note Facility Evaluation note Diagnosis Near syncope- Primary documented in this encounter [facility] Note Date & Type Note Facility Evaluation note Diagnosis Encounter for care of first , third trimester- Primary screening for streptococcus B screening for Streptococcus B documented in this encounter [facility] Evaluation note Note Date & Type Note Facility Evaluation note Diagnosis Large for dates- Primary Encounter for care of first , third trimester documented in this encounter [facility] History general Narrative - Reported Note Date & Type Note Facility History general Narrative - Reported Type Medical History anxiety [employer] Other Instructions Note Date & Type Note Facility Instructions Not on filedocumented in this en counter [facility] [employer] Summary Purpose Family History No Family History Records FoundNo Family History Records FoundNo Family History Records FoundNo Family History Records FoundNo Family History Records FoundNo Family History Records Found Advance Directives No Advanced Directives Records FoundDocuments on File Type Date Recorded Patient Director Of Solutions Architecture Expl anation Advance Directives and Living Will Power of Hoe Worker Additional Source Comments INFORMATION SOURCE (unrecogn ized section and content) DATE CREATED AUTHOR 12/16/2017 [facility] DATE CREATED AUTHOR AUTHOR'S ORGANIZ ATION 12/08/2021 [facility] DATE CREATED AUTHOR AUTHOR'S ORGANIZ ATION 04/24/2023 [facility] DATE CREATED AUTHOR AUTHOR'S ORGANIZ ATION 06/05/2023 [facility] DATE CREATED AUTHOR AUTHOR'S ORGANIZ ATION 08/24/2023 [facility] DATE CREATED AUTHOR AUTHOR'S ORGANIZ ATION 04/17/2024 [facility] EPIC REASON FOR VISIT (unrecogniz ed section and content) Reason Comments Follow-up OV- 3month F/U- Sche duled W/PT- Care Teams (unrecognized sec tion and content) [employer] Relationship Specialty Start Date End Date Chanel Bonilla, PRINT BUYER-RESIDENTIAL REAL ESTATE SALES MANAGER [address] [facility] [place] [address] PCP - General Nurse Practitioner 05/11/23 [employer]termaker Relationship Specialty Start Date End Date Lidya Hall MD [address] [facility] [place] [address] PCP - General Family Medicine 05/12/23 Buttermaker Relationship Specialty Start Date End Date Lidya Hall MD [address] [facility] [place] [address] PCP - General Family Medicine 05/12/23 Charlotte Jacobo DO [address] [place] [address] [place] [address] PCP - Deshaun Ordonez 01/21/23 Buttermaker Relationship Specialty Start Date End Date Lidya Hall MD [address] [place], [place] [phone] PCP - General Family Medicine 05/12/23 Charlotte Jacobo DO [address] [place], [place] [phone] [facility] 01/21[facility]23 FOR RECORDS PERTAINING TO PATIENTS WHO ARE [...] BE BASED ON THE PRIMARY CLINICAL RECORDS. [employer] provides no warranty or guarantee of the accuracy or completeness of information in this document.
[2024-04-20 00:51] LABS: Hematocrit 38.4 % (36.0-48.0); Hemoglobin 12.8 g/dL (12.0-16.0); Mean Corpuscular HGB Conc 33.3 g/dL (29.9-35.2); Mean Corpuscular Hemoglobin 28.3 pg (26.7-34.0); Mean Platelet Volume 12.4 fL (9.5-13.5); Platelet Count 167 10^3/uL (150-450); Red Blood Count 4.52 10^6/uL (4.20-5.40); Red Cell Distribution Width 13.2 % (11.0-15.0); White Blood Count 9.1 10^3/uL (4.0-11.0)
[2024-04-20] MEDS: DINOPROSTONE 10 MG VAG INSERT.ER VAGINAL (01:00)
[2024-04-20] MEDS: CALCIUM CARBONATE 500 MG (200MG ELEMENTAL) TAB CHEW 1000 MG PO ×2 (04:54→10:14)
--- NOTE | 2024-04-20 07:16 | W.PC.ACHO ---
Registration Status: ADM IN Primary Language: Preferred Language: Bengali Report received from Misty AVILA at 0710. Active Medications Generic Name Dose Route Start Last Admin Trade Name Freq PRN Reason Stop Dose Admin Acetaminophen 1,000 mg 04/20/24 03:20 Acetaminophen 500 Mg Tablet PO Q6H PRN Pain Calcium Carbonate 1,000 mg 04/20/24 03:20 04/20/24 04:54 Calcium Carbonate 500 Mg (200mg Elemental) Tab Chew PO 1,000 mg TID PRN Administration Heartburn Carboprost Tromethamine 250 mcg 04/20/24 00:09 Carboprost Tromethamine 250 Mcg/Ml 1 Ml Vial IM 04/22/24 00:09 Q15M PRN Bleeding Diphenhydramine HCl 25 mg 04/20/24 00:14 Diphenhydramine Hcl 50 Mg/Ml Vial IV 04/21/24 00:15 Q6H PRN Itching Ephedrine Sulfate 5 mg 04/20/24 00:14 Ephedrine Sulfate 50 Mg/Ml Vial IV 04/21/24 00:15 Q5M PRN Blood Pressure - Low Fentanyl Citrate 100 mcg 04/20/24 00:14 Fentanyl Citrate/Pf 100 Mcg/2 Ml Vial EPIDURAL ONCE PRN epidural Fentanyl Citrate 100 mcg 04/20/24 00:14 Fentanyl Citrate/Pf 100 Mcg/2 Ml Vial EPIDURAL ONCE PRN epidural Tranexamic Acid 1,000 mg/ 110 mls @ 440 mls/hr 04/20/24 00:09 Sodium Chloride IV 04/22/24 00:09 ONCE PRN Uterine Bleeding Lactated Ringer's 1,000 mls @ 125 mls/hr 04/20/24 00:30 Lactated Ringers IV .Q8H GAYLE Oxytocin/Sodium Chloride 10 units in 500 mls @ 6 mls/hr 04/20/24 00:15 Pitocin 10 Unit/500 Ml-Ns IV TITR GAYLE Protocol 2 MILLIUNIT/MIN Oxytocin/Sodium Chloride 20 units in 1,000 mls @ 125 mls/hr 04/20/24 00:09 Pitocin 20 Unit/1,000 Ml-Ns IV Q8H PRN POST DELIVERY Ropivacaine/Sodium Chloride 400 mg in 200 mls @ 6 mls/hr 04/20/24 00:15 Naropin 0.2% 400 Mg/200 Ml Bag EPIDURAL Q24H GAYLE Lidocaine 5 ml 04/20/24 00:09 Lidocaine Viscous 2% 15 Ml Solution TOPICAL 04/22/24 00:11 ONCE PRN Pain Lidocaine 1 ml 04/20/24 00:09 Lidocaine Hcl 1% 200 Mg/20 Ml Mdv INJ 04/22/24 00:11 ONCE PRN Pain Lidocaine 5 ml 04/20/24 00:14 Lidocaine Hcl 2% Pf 100 Mg/5 Ml Vial INJ 04/21/24 00:15 Q1H PRN Pain Methylergonovine Maleate 0.2 mg 04/20/24 00:09 Methylergonovine Maleate 0.2 Mg/Ml Ampule IM 04/22/24 00:09 ONCE PRN Uterine Contractility/Contract Methylergonovine Maleate 0.2 mg 04/20/24 00:09 Methylergonovine Maleate 0.2 Mg Tablet PO 04/22/24 00:09 Q4H PRN Uterine Contractility/Contract Misoprostol 1,000 mcg 04/20/24 00:09 Misoprostol 100 Mcg Tablet FL 04/22/24 00:09 ONCE PRN Uterine Bleeding Misoprostol 600 mcg 04/20/24 00:09 Misoprostol 100 Mcg Tablet PO 04/22/24 00:09 ONCE PRN Uterine Bleeding Misoprostol 800 mcg 04/20/24 00:09 Misoprostol 100 Mcg Tablet SL 04/22/24 00:09 ONCE PRN Uterine Bleeding Nalbuphine HCl 10 mg 04/20/24 00:09 Nalbuphine Hcl 10 Mg/Ml Ampule IV Q3H PRN Pain Naloxone HCl 0.4 mg 04/20/24 00:14 Naloxone Hcl 0.4 Mg/Ml Vial IV 04/21/24 00:16 ONCE PRN Opioid Reversal Ondansetron HCl 4 mg 04/20/24 00:09 Ondansetron Pf 4 Mg/2 Ml Vial IV Q6H PRN Nausea And Vomiting Ondansetron HCl 4 mg 04/20/24 00:09 Ondansetron 4 Mg Rapdis Tablet SL Q6H PRN Nausea And Vomiting Oxytocin 10 unit 04/20/24 00:09 Oxytocin 10 Unit/Ml Vial IM 04/22/24 00:09 ONCE PRN Bleeding Consults Category Date Time Status Consult to Anesthesiology Routine Cons 04/20/24 Ordered IV Insertion/Site Date of IV Line Insertion [ 04/20/24 Short PIV (<1.75 in) 20g right Hand] IV Insertion Time [Short PIV ( 00:40 <1.75 in) 20g right Hand] Neurology Patient orientation (short person,place,time,situation list)
--- NOTE | 2024-04-20 11:13 | PM.OBHP ---
OB - H&P: HPI History of Present Illness Chief complaint: INDUCTION : 1 Para: 0 Gestational age based on last menstrual period: 37 History of Present Dating criteria: LMP confirmed by 1st trimester US care: good care complications: other Medical complications OB: none Labs Blood type: O (+) positive Rubella: immune RPR/VDLR: nonreactive GBS status: negative HBsAG: negative Review of Systems ROS Status of ROS: 10 or more systems reviewed and unremarkable except as noted in history and below [facility] Medical History (Updated 04/20/24 @ 11:27 by JORDANA LEAHY APRN, [facility]) Anxiety ?F41.9 - Anxiety disorder, unspecified (ICD-10) POTS (postural orthostatic tachycardia syndrome) ?G90.A - Postural orthostatic tachycardia syndrome [POTS] (ICD-10) Social History Highest level of school completed/degree received: don't know Little interest or pleasure in doing things: not at all Feeling down, depressed, or hopeless: not at all Meds Home Medications and Allergies Allergies Allergy/AdvReac Type Severity Reaction Status Date / Time No Known Drug Allergies Allergy Verified 04/20/24 02:29 Exam Constitutional Vital Signs, click to edit/add: Last Vital Signs Pulse 105 H 04/20/24 10:13 Resp 16 04/20/24 08:41 BP 131/69 04/20/24 10:13 Documenting provider has reviewed patient's vital signs: yes Common normals: no apparent distress Orientation/consciousness: Yes awake, Yes oriented to person, Yes oriented to place and Yes oriented to time HENMT Common normals: normocephalic Eye Common normals: EOMs intact bilaterally Neck & C-Spine General: normal visual inspection Lymph Lymphatic: no lymphadenopathy noted Chest Common normals: inspection of chest normal Respiratory Common normals: normal respiratory effort Effort & inspection: able to speak in complete sentences Auscultation: clear to auscultation bilaterally Cardio Common normals: regular rate and regular rhythm Rate: regular rate Rhythm: regular rhythm GI Common normals: Normal to inspection, nondistended, normoactive bowel sounds present Palpation: soft Back & Pelvis Common normals: no CVA tenderness Extremity Common normals: normal to inspection Neuro Common normals: oriented x3 Sensorium/orientation: awake, alert, oriented to person, oriented to place and oriented to time Psych Common normals: mental status grossly normal, thought process normal and cooperative Appearance: grossly normal Attitude: calm Thought process: normal thought process Thought content: normal thought content Results Labs Labs: Short CBC 04/20/24 Range/Units 00:40 WBC 9.1 (4.0-11.0) 10^3/uL Hgb 12.8 (12.0-16.0) g/dL Hct 38.4 (36.0-48.0) % Plt Count 167 (150-450) 10^3/uL OB - A/P Assessment and Plan (1) Term : Plan admit patient to labor and delivery for elective induction of labor
[2024-04-20] MEDS: OXYTOCIN/0.9 % SODIUM CHLORIDE 10 UNITS/500 ML PLAST..BAG 6 UNIT IV (11:40)
[2024-04-20] MEDS: LACTATED RINGER'S SOLUTION 1,000 ML 125 ML IV (11:40)
[2024-04-20] MEDS: DOCUSATE SODIUM 100 MG CAPSULE PO (11:51)
[2024-04-20] MEDS: LACTATED RINGER'S SOLUTION 1,000 ML 999 ML IV ×2 (18:50→22:48)
[2024-04-20] MEDS: NALBUPHINE HCL 10 MG/ML AMPULE IV (19:02)
--- NOTE | 2024-04-20 20:21 | W.PC.ACHO ---
Registration Status: ADM IN Primary Language: Preferred Language: Bulgarian Report given to StephanieGinnaDiamante at 1900. Care relinquished. Active Medications Generic Name Dose Route Start Last Admin Trade Name Doris PRN Reason Stop Dose Admin Acetaminophen 1,000 mg 04/20/24 03:20 Acetaminophen 500 Mg Tablet PO Q6H PRN Pain Calcium Carbonate 1,000 mg 04/20/24 03:20 04/20/24 10:14 Calcium Carbonate 500 Mg (200mg Elemental) Tab Chew PO 1,000 mg TID PRN Administration Heartburn Carboprost Tromethamine 250 mcg 04/20/24 00:09 Carboprost Tromethamine 250 Mcg/Ml 1 Ml Vial IM 04/22/24 00:09 Q15M PRN Bleeding Diphenhydramine HCl 25 mg 04/20/24 00:14 Diphenhydramine Hcl 50 Mg/Ml Vial IV 04/21/24 00:15 Q6H PRN Itching Docusate Sodium 100 mg 04/20/24 11:17 04/20/24 11:51 Docusate Sodium 100 Mg Capsule PO 100 mg BID PRN Administration Constipation Ephedrine Sulfate 5 mg 04/20/24 00:14 Ephedrine Sulfate 50 Mg/Ml Vial IV 04/21/24 00:15 Q5M PRN Blood Pressure - Low Fentanyl Citrate 100 mcg 04/20/24 00:14 Fentanyl Citrate/Pf 100 Mcg/2 Ml Vial EPIDURAL ONCE PRN epidural Fentanyl Citrate 100 mcg 04/20/24 00:14 Fentanyl Citrate/Pf 100 Mcg/2 Ml Vial EPIDURAL ONCE PRN epidural Tranexamic Acid 1,000 mg/ 110 mls @ 440 mls/hr 04/20/24 00:09 Sodium Chloride IV 04/22/24 00:09 ONCE PRN Uterine Bleeding Lactated Ringer's 1,000 mls @ 125 mls/hr 04/20/24 00:30 04/20/24 18:50 Lactated Ringers IV 999 mls/hr .Q8H GAYLE Administration Oxytocin/Sodium Chloride 10 units in 500 mls @ 6 mls/hr 04/20/24 00:15 04/20/24 18:45 Pitocin 10 Unit/500 Ml-Ns IV 12 milliunit/min TITR GAYLE 36 mls/hr Infusion Protocol 2 MILLIUNIT/MIN Oxytocin/Sodium Chloride 20 units in 1,000 mls @ 125 mls/hr 04/20/24 00:09 Pitocin 20 Unit/1,000 Ml-Ns IV Q8H PRN POST DELIVERY Ropivacaine/Sodium Chloride 400 mg in 200 mls @ 6 mls/hr 04/20/24 00:15 Naropin 0.2% 400 Mg/200 Ml Bag EPIDURAL Q24H GAYLE Lidocaine 5 ml 04/20/24 00:09 Lidocaine Viscous 2% 15 Ml Solution TOPICAL 04/22/24 00:11 ONCE PRN Pain Lidocaine 1 ml 04/20/24 00:09 Lidocaine Hcl 1% 200 Mg/20 Ml Mdv INJ 04/22/24 00:11 ONCE PRN Pain Lidocaine 5 ml 04/20/24 00:14 Lidocaine Hcl 2% Pf 100 Mg/5 Ml Vial INJ 04/21/24 00:15 Q1H PRN Pain Methylergonovine Maleate 0.2 mg 04/20/24 00:09 Methylergonovine Maleate 0.2 Mg/Ml Ampule IM 04/22/24 00:09 ONCE PRN Uterine Contractility/Contract Methylergonovine Maleate 0.2 mg 04/20/24 00:09 Methylergonovine Maleate 0.2 Mg Tablet PO 04/22/24 00:09 Q4H PRN Uterine Contractility/Contract Misoprostol 1,000 mcg 04/20/24 00:09 Misoprostol 100 Mcg Tablet RI 04/22/24 00:09 ONCE PRN Uterine Bleeding Misoprostol 600 mcg 04/20/24 00:09 Misoprostol 100 Mcg Tablet PO 04/22/24 00:09 ONCE PRN Uterine Bleeding Misoprostol 800 mcg 04/20/24 00:09 Misoprostol 100 Mcg Tablet SL 04/22/24 00:09 ONCE PRN Uterine Bleeding Nalbuphine HCl 10 mg 04/20/24 00:09 04/20/24 19:02 Nalbuphine Hcl 10 Mg/Ml Ampule IV 10 mg Q3H PRN Administration Pain Naloxone HCl 0.4 mg 04/20/24 00:14 Naloxone Hcl 0.4 Mg/Ml Vial IV 04/21/24 00:16 ONCE PRN Opioid Reversal Ondansetron HCl 4 mg 04/20/24 00:09 Ondansetron Pf 4 Mg/2 Ml Vial IV Q6H PRN Nausea And Vomiting Ondansetron HCl 4 mg 04/20/24 00:09 Ondansetron 4 Mg Rapdis Tablet SL Q6H PRN Nausea And Vomiting Oxytocin 10 unit 04/20/24 00:09 Oxytocin 10 Unit/Ml Vial IM 04/22/24 00:09 ONCE PRN Bleeding Consults Category Date Time Status Consult to Anesthesiology Routine Cons 04/20/24 Ordered IV Insertion/Site Date of IV Line Insertion [ 04/20/24 Short PIV (<1.75 in) 20g right Hand] IV Insertion Time [Short PIV ( 00:40 <1.75 in) 20g right Hand] Neurology Patient orientation (short person,place,time,situation list)
[2024-04-21] VITALS (80 sets, daily range): BP systolic 88–146; BP diastolic 51–89; PULSE 63–117; TEMP 35.3–37
[2024-04-21] MEDS: OXYTOCIN/0.9 % SODIUM CHLORIDE 10 UNITS/500 ML PLAST..BAG 48 UNIT IV (02:04)
[2024-04-21] MEDS: LACTATED RINGER'S SOLUTION 1,000 ML 999 ML IV (02:12)
[2024-04-21] MEDS: ROPIVACAINE HCL/PF 400 MG/200 ML PREMIX 8 MG EPIDURAL (02:39)
--- NOTE | 2024-04-21 06:20 | PM.OBPNL ---
Pain Control Pain control: tolerating well Pelvic Exam Dilation (cm): 4 Effacement (%): 80 Comments: midposition, zero station, soft Contractions Monitor mode: External Contraction frequency: 2 Contraction duration: 1 Contraction pattern: Irregular Contraction phase: Resting (adequate relaxation between contractions) Contraction intensity: Strong station: 0 Amniotic membrane status: Ruptured status: Category I Assessment and Plan Pitocin rate (mU/min): 20 Assessment: induction ongoing Plan: continuous present management Comments: hopefully transitioning from latent to active labor, comfortable with epidural, FH CAT I, good contraction pattern
[2024-04-21] MEDS: LACTATED RINGER'S SOLUTION 1,000 ML 125 ML IV (08:16)
[2024-04-21] MEDS: OXYTOCIN/0.9 % SODIUM CHLORIDE 20 UNITS/1,000 ML PLAST..BAG 125 UNIT IV (13:40)
[2024-04-21] MEDS: LIDOCAINE HCL 1% 200 MG/20 ML MDV INJ (13:45)
[2024-04-21] MEDS: LIDOCAINE VISCOUS 2% 15 ML SOLUTION 5 ML TOPICAL (13:47)
--- NOTE | 2024-04-21 13:50 | PM.OBPRCVD ---
Procedure events: Labor Induction and Labor Augmentation Intrapartal events: None Induction method: other (cervidil ) Delivery augmentation: rupture of membranes Delivery monitor: external FHT and external uterine Route of delivery: Episiotomy Description: midline (per Dr Ortega ) L&D Laceration Description: perineal - 3rd degree (repaire dper Dr Ortega ) Delivery repair: Vicryl Estimated blood loss (mL): 300 Anesthesia type: Epidural Disposition: no change Delivery date: 04/21/24 Gender: female presentation: vertex Placental delivery description: Spontaneous cord description: 3 Vessels heart rate - 1 minute: 100 bpm or Greater respiratory effort - 1 minute: Spontaneous/Strong Cry muscle tone - 1 minute: Minimal Flexion/Extension reflex response - 1 minute: Prompt Response color - 1 minute: Bluish Hands or Feet total score - 1 minute: 8 heart rate - 5 minute: 100 bpm or Greater respiratory effort - 5 minute: Spontaneous/Strong Cry muscle tone - 5 minute: Active Movement reflex response - 5 minute: Prompt Response color - 5 minute: Bluish Hands or Feet total score - 5 minute: 9
[2024-04-21] MEDS: ACETAMINOPHEN 500 MG TABLET 1000 MG PO ×2 (15:58→22:07)
[2024-04-21] MEDS: BENZOCAINE/MENTHOL 85 GRAM SPRAY BOTTLE 1 APPLIC TOPICAL (17:54)
[2024-04-21] MEDS: GLYCERIN/WITCH HAZEL PADS 1 PAD TOPICAL (17:54)
[2024-04-21] MEDS: IBUPROFEN 600 MG TABLET PO (17:55)
--- NOTE | 2024-04-21 19:10 | PC.NURSE ---
Pt assisted to bathroom with 2 RNs; pt slight dizziness with ambulation. Donato-care and hygiene care provided. Lochia and donato-care education given.
[2024-04-22] MEDS: IBUPROFEN 400 MG TABLET 800 MG PO ×3 (02:14→18:05)
[2024-04-22 06:52] LABS: Hematocrit 33.8 % (36.0-48.0); Hemoglobin 11.2 g/dL (12.0-16.0); Mean Corpuscular HGB Conc 33.1 g/dL (29.9-35.2); Mean Corpuscular Hemoglobin 28.6 pg (26.7-34.0); Mean Corpuscular Volume 86.4 fL (81.0-99.0); Mean Platelet Volume 12.1 fL (9.5-13.5); Platelet Count 139 10^3/uL (150-450); Red Blood Count 3.91 10^6/uL (4.20-5.40); Red Cell Distribution Width 13.8 % (11.0-15.0)
[2024-04-22] MEDS: ACETAMINOPHEN 500 MG TABLET 1000 MG PO ×2 (09:30→20:18)
[2024-04-22] MEDS: DOCUSATE SODIUM 100 MG CAPSULE PO ×2 (09:31→20:53)
[2024-04-22 09:50] VITALS: BP 130/73; PULSE 98; TEMP 36.7
--- NOTE | 2024-04-22 10:28 | PM.OBPN ---
OB - PN: Subj Subjective Patient comments: no complaints, pain well controlled, tolerating diet and flatus present [place] infant status: doing well feeding status: exclusively Exam Narrative Exam Narrative: AMBULATING, EATING, ELIMINATING NORMALLY, VOICING NO COMPLAINTS Constitutional Vital Signs, click to edit/add: Last Vital Signs Temp 96.1 F L 04/21/24 23:38 Pulse 98 H 04/22/24 09:50 Resp 16 04/21/24 23:39 BP 130/73 04/22/24 09:50 Documenting provider has reviewed patient's vital signs: yes Common normals: no apparent distress, oriented x3, no limitations, healthy appearing, alert and well nourished HENMT Common normals: normocephalic and head/scalp atraumatic Eye Common normals: PERRL Pupil: accommodation reflex normal Neck & C-Spine Common normals: full ROM and supple Respiratory Common normals: normal respiratory effort Auscultation: clear to auscultation bilaterally Cardio Common normals: regular rate and regular rhythm GI Common normals: Normal to inspection, nondistended, normoactive bowel sounds present and soft to palpation Common normals: no CVA tenderness Back & Pelvis Common normals: no thoracic nor lumbar tenderness Extremity Common normals: normal to inspection, full ROM and no calf tenderness Neuro Common normals: CN's II-XII intact bilaterally, moves all extremities, no focal motor deficits and no sensory deficits noted Psych Common normals: mental status grossly normal, thought process normal, cooperative, affect normal and speech normal Results Labs Labs: Short CBC 04/22/24 Range/Units 06:34 WBC 12.0 H (4.0-11.0) 10^3/uL Hgb 11.2 L (12.0-16.0) g/dL Hct 33.8 L (36.0-48.0) % Plt Count 139 L (150-450) 10^3/uL Urinary Catheter Management Urinary Catheter Management Urethral: Cath placed during this visit: no OB - PN: A/P Assessment and Plan (1) (spontaneous vaginal delivery): Assessment and Plan: HEMOGLOBIN AND VSS GOOD. VOICING NO COMPLAINTS. BREAST FEEDING WITHOUT ISSUE. BABY DOING WELL. Plan - Vaginal Delivery day: 1 Time Spent with Patient Time: Total time spent is greater than 50% in coordination of care (as documented) at patient's floor/unit and/or counseling patient: Total time spent with greater than 50% in coordination of care (as documented) at patient's floor/unit and/or counseling patient: less than 15 minutes
[2024-04-22 18:04] VITALS: BP 127/68; PULSE 92
[2024-04-22 23:02] VITALS: BP 128/80; PULSE 86
[2024-04-22 23:05] VITALS: TEMP 36.8
[2024-04-23] MEDS: IBUPROFEN 400 MG TABLET 800 MG PO ×2 (03:37→14:14)
[2024-04-23 09:05] VITALS: BP 143/76; PULSE 83
[2024-04-23] MEDS: ACETAMINOPHEN 500 MG TABLET 1000 MG PO (09:06)
[2024-04-23] MEDS: DOCUSATE SODIUM 100 MG CAPSULE PO (09:07)
--- NOTE | 2024-04-23 11:41 | P.DS_ITS ---
DS: Providers Provider Date of admission: 04/20/24 00:05 Primary care physician: DAISY BONILLA Admitting clinician: JORDANA LEAHY Consults: 04/20/24 Consult to Anesthesiology Routine Consulting Provider: Pete Mcconnell II Reason for consultation: epidural Has provider been notified: No Attending physician on discharge: Rose Ortega Anticipated date of discharge: 04/23/24 DS: Diagnosis Discharge Diagnosis (1) (spontaneous vaginal delivery): Assessment and plan: DELIVERED WITHOUT COMPLICATION Plan DISCHARGE HOME, FOLLOW UP IN SIX WEEKS FOR EXAM, NO SCRIPTS, INTRUCTIONS GIVEN WITH STATED UNDERSTANDING OB - DS: Summary Hospital Course Hospital Course: UNCOMPLICATED Time spent discussing smoking cessation with patient: 3 to 10 minutes Peripartum Data - Vaginal Delivery Laceration description: perineal - 3rd degree Episiotomy Description: midline Procedures: REPAIRED IN LAYERS WITH EXCELLENT TISSUE EDGE APPROXIMATION, WITH 3 - 0 AND 4 - 0 VICRYL, RECTUM INTACT Complications complications: none Delivery method: spontaneous vaginal delivery Gender: female Discharge plan: home Status at Discharge Cognitive/behavioral status at discharge: WNL Functional status at discharge: independent ambulation Time Spent with Patient Time attestation: Total time spent providing and/or coordinating discharge services: Time spent: less than 30 minutes Exam Constitutional Vital Signs, click to edit/add: Last Vital Signs Temp 98.3 F 04/22/24 23:05 Pulse 83 04/23/24 09:05 Resp 16 04/22/24 09:50 BP 143/76 H 04/23/24 09:05 O2 Del Method Room Air 04/23/24 09:05 Documenting provider has reviewed patient's vital signs: yes Common normals: no apparent distress, average body habitus, oriented x3, no limitations, healthy appearing, alert and well nourished [facility] Common normals: normocephalic and head/scalp atraumatic Eye Common normals: PERRL Pupil: accommodation reflex normal Neck & C-Spine Common normals: full ROM and supple Respiratory Common normals: normal respiratory effort Cardio Common normals: regular rate and regular rhythm GI Common normals: Normal to inspection, nondistended, normoactive bowel sounds present and soft to palpation Common normals: no CVA tenderness Back & Pelvis Common normals: no thoracic nor lumbar tenderness Extremity Common normals: normal to inspection, full ROM and no calf tenderness Neuro Common normals: CN's II-XII intact bilaterally, moves all extremities and no focal motor deficits Motor exam: strength 5/5 throughout Psych Common normals: mental status grossly normal, thought process normal, cooperative, affect normal, speech normal and activity/motor behavior normal Discharge Plan Discharge Disposition: Home, Self-Care Assessment: CONDITION GOOD, APPROPRIATE FOR DISCHARGE Health Concerns: NONE Plan of Treatment: DISCHARGE HOME Discharge Medications: No Action No Known Home Medications Activity: increase activity as tolerated Activity Detail: WALKING ONLY EXERCISE FOR 4 WEEKS, NO SEX FOR 6 WEEKS, SPORTS BRA 13/01 IF Diet: regular diet Print Language: Latvian Patient Instructions: Vaginal Delivery (DC) Forms: Vaginal Delivery - Discharge, Portal Instructions Follow Up Appointments: MAKE A APPOINTMENT FOR EXAM SIX WEEKS FROM DELIVERY Discharge location: HOME
[2024-04-23] MEDS: BENZOCAINE/MENTHOL 85 GRAM SPRAY BOTTLE 1 APPLIC TOPICAL (14:17)
[2024-04-23] MEDS: GLYCERIN/WITCH HAZEL PADS 1 PAD TOPICAL (14:17)
== END 2024-04-23 16:10 | disposition home or self-care (01) | DRG 768 ==
PROVIDERS: Admitting Provider Midwife; PCP Nurse Practitioner Family; Visit Provider Midwife
DX: O99.354 Diseases of the nervous system complicating childbirth (principal); Z37.0 Single live birth; G90.A Postural orthostatic tachycardia syndrome [POTS]; O70.20 Third degree perineal laceration during delivery, unspecified; Z3A.39 39 weeks gestation of pregnancy
CPT/HCPCS: 36415; 51702; 59050; 59410; 85027; 86850; 86900; 86901; J2300; J2795

== ENCOUNTER 2024-04-26 09:46 | Outpatient (OUT) | payer BC, SELFPAY ==
--- NOTE | 2024-04-26 13:50 | PC.NURSE ---
Melissa and 5 day old Rivera arrive for follow up appointment. Rivera requires repeat bili draw as was treated for hyperbilirubinemia 04/25/2024. Scheduled repeat today. Lab drawn per this sheet writer and to lab. VSS and assessment WNL for Rivera. 2 wet diapers noted during assessment. Baby to breast independently per mom. Active swallows noted fo r13 minutes and then sleeps. VSS and assessment WNL for Melissa. Denies concerns for self or questions. Relaxed and attentive to needs of . Aware to call for further concerns as needed.
[2024-04-26 14:11] VITALS: BP 117/82; PULSE 82; TEMP 36.9; O2SAT 98
== END 2024-04-26 14:18 | disposition home or self-care (01) ==
LOC: FBCO 09:47
PROVIDERS: PCP Nurse Practitioner Family; Visit Provider Midwife
DX: Z39.2 Encounter for routine postpartum follow-up (principal)